=== PATIENT | female | born 1960 | race Caucasian/White ===

== ENCOUNTER 2018-08-11 10:57 | Outpatient (CLI) | payer MEDICAID, SELFPAY ==
[2018-08-11 14:50] LABS: Hemoglobin A1C 10.7 % (4.5-6.2)
== END 2018-08-11 11:17 ==
PROVIDERS: PCP Internal Medicine; Visit Provider Internal Medicine
DX: E11.9 Type 2 diabetes mellitus without complications (principal)
CPT/HCPCS: 36415; 88142; 83036; 87624

== ENCOUNTER 2018-08-11 12:16 | Outpatient (REF) | payer MEDICAID, SELFPAY ==
--- NOTE | 2018-08-11 11:00 | PAPFT_PTH ---
PATIENT: Amy Boyd LOC: [facility] U#:[id number] AGE/SX: 58/F ROOM: RE08/11/[address]: Sharmila Miller MD : 1960 BED: DIS: 08/11/2018 SPEC #: [id number] RECD: 08/11/18 12:54 STATUS: MARIEL REFredy #: [id number] MEGA: 08/11/18 11:[address]: Sharmila Argueta DEPT: [facility] Cytology RECD BY: Alicia Bentley Tissues: 1 - CX/ENDOCX FOR PAP SMEARS Procedures: PAP THIN PREP/UVM Screening HPV DNA PROBE Comments: [id number]
== END 2018-08-11 12:36 ==
LOC: LBN 12:16
PROVIDERS: PCP Internal Medicine; Visit Provider Internal Medicine
DX: Z12.4 Encounter for screening for malignant neoplasm of cervix (principal); Z11.51 Encounter for screening for human papillomavirus (HPV)
CPT/HCPCS: 88142; 87624

== ENCOUNTER 2018-08-19 00:27 | Outpatient (CLI) | payer MEDICAID, SELFPAY ==
--- NOTE | 2018-08-19 11:05 | DI.MAMMO_ITS ---
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 Comparison is made with the prior examinations. No suspicious masses or microcalcifications are seen. There is no definite evidence of malignancy. IMPRESSION: Negative mammogram. Routine screening is recommended. Category 1 , breast density B. SA ASSESSMENT OF FINDINGS: Negative. Category 1. Patient will receive a letter notifying them of these results. BI-RADS category B. There are scattered areas of fibroglandular density.
== END 2018-08-19 00:47 ==
PROVIDERS: PCP Internal Medicine; Visit Provider Internal Medicine
DX: Z12.31 Encounter for screening mammogram for malignant neoplasm of breast (principal); Z01.419 Encounter for gynecological examination (general) (routine) without abnormal findings
CPT/HCPCS: 77063; 77067

== ENCOUNTER 2018-12-29 11:36 | Outpatient (CLI) | payer MEDICAID, SELFPAY ==
[2018-12-29 13:31] LABS: FREE T4 0.91 ng/dL (0.76-1.46)
== END 2018-12-29 11:56 ==
PROVIDERS: PCP Internal Medicine; Visit Provider Internal Medicine
DX: E03.9 Hypothyroidism, unspecified (principal); E11.9 Type 2 diabetes mellitus without complications
CPT/HCPCS: 36415; 83036; 84439; 84443

== ENCOUNTER 2019-08-07 06:40 | Outpatient (CLI) | payer MEDICAID, SELFPAY ==
[2019-08-07 11:15] LABS: Calculated LDL 141 mg/dL; Cholesterol 206 mg/dL (<200); HDL Cholesterol 29 mg/dL (40-60); TSH (W/Ref FT4) 3.26 uIU/mL (0.36-3.74); Triglyceride 181 mg/dL (<150)
[2019-08-07 13:37] LABS: Hemoglobin A1C 8.4 % (4.5-6.2)
== END 2019-08-07 07:00 ==
PROVIDERS: PCP Internal Medicine; Visit Provider Internal Medicine
DX: E78.9 Disorder of lipoprotein metabolism, unspecified (principal); E03.9 Hypothyroidism, unspecified; E11.9 Type 2 diabetes mellitus without complications
CPT/HCPCS: 36415; 80061; 83036; 84443

== ENCOUNTER 2019-09-10 00:09 | Outpatient (CLI) | payer MEDICAID, SELFPAY ==
--- NOTE | 2019-09-10 11:39 | DI.MAMMO_ITS ---
EXAM: MG MAMMO SCREENING CLINICAL HISTORY: screening, Z12.39. TECHNIQUE: Bilateral full field digital CC and MLO mammographic images were obtained with 3D tomosyn thesis and utilizing computer aided detection (CAD). COMPARISON: Available for comparison. FINDINGS: Masses/Architectural Distortion: None seen. Microcalcifications: No suspicious pleomorphic-type are seen. Skin Thickening/Nipple Retraction: None. IMPRESSION: 1. No significant interval change with no specific features of malignancy noted. 2. Unless there is more urgent need, screening mammography is recommended, as per [employer] guidelines. ACR BI-RAD Category- 1 Negative Breast Density - Category B - Scattered areas of fibroglandular density A negative radiographic report should not delay biopsy if a dominant or clinically suspicious mass is present. Up to ten percent of cancers are not identified on mammography. A negative report may reinforce clinical impression. Adenosis and dense breasts may obscure an underlying neoplasm. False positive reports average 6 to 10%. Patient will receive a letter notifying them of these results.
== END 2019-09-10 00:29 ==
PROVIDERS: PCP Internal Medicine; Visit Provider Internal Medicine
DX: Z12.31 Encounter for screening mammogram for malignant neoplasm of breast (principal)
CPT/HCPCS: 77063; 77067

== ENCOUNTER 2020-03-31 19:57 | Outpatient (REF) | payer MEDICAID, SELFPAY ==
[2020-03-31 20:53] LABS: Calculated LDL 143 mg/dL (<100); Cholesterol 231 mg/dL (<200); HDL Cholesterol 33 mg/dL (40-60); Triglyceride 277 mg/dL (<150)
[2020-03-31 21:03] LABS: Hemoglobin A1C 10.6 % (3.8-5.6)
== END 2020-03-31 20:17 ==
LOC: LBN 19:57
PROVIDERS: PCP Nurse Practitioner; Visit Provider Internal Medicine
DX: E78.2 Mixed hyperlipidemia (principal); E11.9 Type 2 diabetes mellitus without complications
CPT/HCPCS: 80061; 83036

== ENCOUNTER 2020-07-21 08:01 | Outpatient (CLI) | payer SELFPAY ==
[2020-07-23 13:19] LABS: SARS-CoV-2 RNA Not Detected (NotDetected); SARS-CoV-2 RNA Source Nasal/Nares
== END 2020-07-21 08:21 ==
PROVIDERS: PCP Nurse Practitioner; Visit Provider Surgery
DX: Z01.818 Encounter for other preprocedural examination (principal); Z11.59 Encounter for screening for other viral diseases
CPT/HCPCS: U0003

== ENCOUNTER 2020-07-25 06:21 | Day surgery (SDC) | payer SELFPAY ==
[2020-07-25 06:30] VITALS: BP 122/53; PULSE 58; RESP 18; TEMP 36.4; O2SAT 99
--- NOTE | 2020-07-25 06:40 | W.COLOREPORT ---
Date of service: 07/25/20 Time of Service: 07:30 Colonoscopy Report Date of procedure: 07/25/20 Pre-op diagnosis general: Hx of polyps Procedure: Colonoscopy with polypectomy Surgeon: Sunita Fry Anesthesia proc note operative: other (General/ ASA 2/Surendra lopez, JAYDEN) Estimated blood loss (mL): 3 Pathology: other (cecal, ascending, descending x4, sigmoid x3 and polyp at 30 cm) Complications: None Disposition: same day Indications: The patient is here for Colonoscopy pre-op. Her last screening was in 2014 and was remarkable for tubular adenoma. She has no family history of colon cancer. She has noted bowel habit changes which she associates with her increase in her Metformin dose, for she has had more frequent diarrhea. -Discussed colonoscopy bowel prep as well as the procedure. Discussed possible complications of the procedure to include bleeding, pain, perforation, missed small lesion/polyp, sore throat, aspiration and adverse reaction to the medications. Questions were answered to patient?s satisfaction. No guarantees were implied or given. Prep: Miralax/Dulcolax Procedure Start Time: 07:24 Procedure End Time: 08:15 Retraction Time: 44 minutes Findings: multiple polyps and mild diverticulosis Procedure Description: After informed consent was obtained the patient was taken to the procedure room and placed in a left decubitous position. Monitors were applied and a time out was done. The patients name, date of , procedure, allergies to medications and metal in their body was reviewed. The patient was then sedated. Once sedated and comfortable a rectal exam was done. External exam was normal. Internal exam revealed a normal sphincter tone and no palpable masses. The scope was then introduced and retro-flexed. No internal hemorrhoids were identified. The scope was then advanced to the cecum without difficulty. The ileocecal vlave and appendiceal orifice were identified. The prep was adequate. The scope was then slowly retracted over 44 minutes back into the rectum. Polyps were removed with cold forceps in the cecum, ascending colon x1, descending colon x4, sigmoid colon x3. Polyp at 30 cm was removed with a hot snare. There was also mild diverticulosis of the sigmoid colon. The scope was removed and the patient was woken up and taken back to Same day surgery in stable condition. The patient tolerated the procedure well and there were no immediate complications. Follow up: The patient should follow up in 3-5 years unless they develop changes in bowel habits or other new gastrointestinal complaints.
--- NOTE | 2020-07-25 06:41 | W.PM.DSUDISC ---
Discharge Plan Disposition Patient Disposition: HOME Condition: Good Discharge Details Reason For Visit: colonoscopy Attending Provider: Sunita Fry Primary Care Provider: Liat Wise Home Meds and New Rx's Prescriptions: Continued atenolol 25 mg tablet 25 mg PO DAILY Qty: 90 RF: 4 levothyroxine 137 mcg tablet 137 mcg PO .COMPLEX Qty: 48 RF: 3 levothyroxine 150 mcg tablet 150 mcg PO .COMPLEX Qty: 48 RF: 3 lisinopril 10 mg tablet 10 mg PO DAILY Qty: 90 RF: 4 glipizide 5 mg tablet 10 mg PO BID Qty: 180 RF: 4 ASPIRIN 81 MG tablet 1 tab PO DAILY RF: 0 nitroglycerin 0.4 MG tablet, sublingual 1 tab Sublingual PRN Qty: 25 RF: 4 diphenhydramine HCl 25 MG tablet 25 mg PO HS RF: 0 fluoxetine 20 mg capsule 20 mg PO DAILY Qty: 90 RF: 3 atorvastatin 80 mg tablet 80 mg PO QPM Qty: 90 RF: 3 metformin 1,000 mg tablet 1,000 mg PO BID Qty: 90 RF: 3 Discharge Instructions Instructions: Colorectal Polyps (DC), Diverticulosis (DC) Additional Instructions: Findings: 10 polyps Follow up: 3-5 years Please call if you develop: fevers >101.5 Nausea or Vomiting Abdominal pain that is not transient DAY SURGERY UNIT POST ENDOSCOPY INSTRUCTIONS 1. Because there will be medication in your system for the next 24 hours, you may feel a little sleepy. Your coordination will be affected. Therefore: a. Do not drive or operate dangerous equipment for 24 hours. b. Do not drink alcohol beverages for 24 hours (not even beer). c. Plan to go home and rest for the day. 2. Generally there are no restrictions on your activity after a day or so has gone by, but you may feel a bit fatigued for a few days. 3 After you arrive home you may have a light meal and return to a normal diet as you can tolerate it without feeling sick to your stomach. 4. After surgery, you may feel pain or discomfort. This should be only transient, but if it persists please contact your doctor. 5. If there are any questions regarding the findings of your procedure, please feel free to contact your doctor. 6. If you are unable to contact your doctor with a problem, contact the hospital at [phone]. 7. Continue all your regular medications unless directed otherwise. I understand the above instructions and have no questions. Signature of Patient or Responsible Adult Escort Date/Time Name of Responsible Adult Escort Signature of Nurse Date/Time Activity:: Activity as Tolerated Diet:: high Fiber diet Discharge Orders Discharge Orders: Discharge Order (Routine); Ordered 07/25/20 Ordered By: Sunita Fry DS: Diagnosis Discharge Diagnosis (1) Colorectal polyps: Status: Acute (2) Diverticulosis: Status: Acute
[2020-07-25] MEDS: Lactated Ringers 1,000 ML 80 ML IV (06:55)
--- NOTE | 2020-07-25 07:33 | BOWEL_PTH ---
PATIENT: Amy Boyd LOC: [facility] U#:[id number] AGE/SX: 60/F ROOM: RE07/25/[address]: Sunita rFy MD : 1960 BED: DIS: 07/25/2020 SPEC #: [id number] RECD: 07/25/20 09:49 STATUS: MARIEL RE #: [id number] MEGA: 07/25/20 07:[address]: Sunita Fry DEPT: Surgical Specimen RECD BY: Philomena Wiley ENTERED: 07/25/20 09:52 SP TYPE: Bowel OTHR DR: Liat Wise, PhD NITROGLYCERIN NEUTRALIZER Tissues: 1 - BIOPSY BOWEL 2 - BIOPSY BOWEL 3 - BIOPSY BOWEL 4 - BIOPSY BOWEL 5 - BIOPSY BOWEL Procedures: GROSS AND MICRO LEVEL 4 Comments: [id number] ([id number] [facility] [place]#)
[2020-07-25] MEDS: metFORMIN 500 MG TAB 1000 MG PO (08:34)
[2020-07-25 08:53] VITALS: BP 123/56; PULSE 56; RESP 18; TEMP 36.2; O2SAT 98
== END 2020-07-25 09:09 | disposition home or self-care (01) ==
PROVIDERS: PCP Nurse Practitioner; Visit Provider Surgery
PROC: 0DJD8ZZ Inspection of Lower Intestinal Tract, Via Natural or Artificial Opening Endoscopic (ICD-10-PCS; CPT 45378; principal; 2020-07-25 07:30)
DX: Z12.11 Encounter for screening for malignant neoplasm of colon (principal); Z86.010 Personal history of colon polyps; K57.30 Diverticulosis of large intestine without perforation or abscess without bleeding; E11.9 Type 2 diabetes mellitus without complications; I25.10 Atherosclerotic heart disease of native coronary artery without angina pectoris
CPT/HCPCS: 45385; 45380; 88305; J2001

== ENCOUNTER 2020-10-27 16:20 | Emergency (ER) | payer MEDICAID, SELFPAY ==
[2020-10-27] VITALS (29 sets, daily range): BP systolic 96–134; BP diastolic 48–108; PULSE 54–66; RESP 11–23; TEMP 36.3; O2SAT 97–100
--- NOTE | 2020-10-27 16:45 | RT.EKG_ITS ---
APPROVED REPORT Exam: Resting ECG Patient Location: E HR:57 bpm ECG Measurements Heart Rate 57 AXIS WI 204 P 47 QRSd 85 QRS 61 QT 438 T 59 QTc 426 Conclusion Sinus bradycardia. Borderline prolonged WI interval...WI >202
--- NOTE | 2020-10-27 17:24 | ED.GENADUL_ITS ---
Discharge Plan Disposition Patient Disposition: HOME Condition: Good Discharge Details Clinical Impression: Dizziness, Elevated lipase, Hypomagnesemia Primary Care Provider: Liat Wise ED Provider: Alicia Witt Home Meds and New Rx's Prescriptions: New magnesium gluconate 30 mg (550 mg) tablet 30 mg PO DAILY Qty: 7 RF: 0 meclizine 25 mg tablet 25 mg PO DAILY Qty: 7 RF: 0 No Action levothyroxine 137 mcg tablet 137 mcg PO .COMPLEX Qty: 48 RF: 3 levothyroxine 150 mcg tablet 150 mcg PO .COMPLEX Qty: 48 RF: 3 lisinopril 10 mg tablet 10 mg PO DAILY Qty: 90 RF: 4 ASPIRIN 81 MG tablet 1 tab PO DAILY RF: 0 nitroglycerin 0.4 MG tablet, sublingual 1 tab Sublingual PRN Qty: 25 RF: 4 diphenhydramine HCl 25 MG tablet 25 mg PO HS RF: 0 fluoxetine 20 mg capsule 20 mg PO DAILY Qty: 90 RF: 3 atorvastatin 80 mg tablet 80 mg PO QPM Qty: 90 RF: 3 metformin 1,000 mg tablet 1,000 mg PO BID Qty: 90 RF: 3 atenolol 25 mg tablet 25 mg PO DAILY Qty: 90 RF: 4 glipizide 10 mg tablet 10 mg PO BID Qty: 180 RF: 4 Discharge Instructions Instructions: Hypomagnesemia (ED), Dizziness (ED) Additional Instructions: Have a repeat lipase tests drawn today or tomorrow Follow-up with your doctor to discuss whether or not your medications may be causing elevation in her lipase Try to have a clear liquid diet Meclizine may be attempted should you have recurrence of your dizziness If your symptoms are not alleviated with the meclizine, you should be reevaluated in the emergency room Please return earlier should you have new or worsening complaints Take magnesium as instructed Medical Decision Making Lipase 700, patient was able to tolerate p.o., clear liquid recommended Order for lipase recheck in 24 to 48 hours recommended Instructed to discuss with her doctor regarding whether or not diabetes medications may be causing her symptoms Patient is well in appearance, she is completely asymptomatic throughout the entirety of her exam, she has 2 - troponins and EKG She was observed on telemetry without any abnormal findings She is ambulatory around room, she is not orthostatic To request discharge home at this time Her magnesium was noted to be low, 1.5, this was supplemented Given the threshold to return should she have new or worsening complaints She is able to tolerate p.o. at time of discharge Suspicion for gastroenteritis with her symptoms are completely resolved and more in close proximity to feeling dizzy which she describes with peripheral dizziness Low risk for carotid artery or vertebral artery dissection, no mechanism with her red flags She is ambulatory with steady gait Her magnesium was supplemented and unlikely to cause her symptoms 24-hour recheck recommended Differential Diagnosis Differential Diagnosis: Hypomagnesemia, vertigo, vertebral or carotid artery dissection, gastroente Medical Records Medical records reviewed: Yes I reviewed the patient's medical records. HPI This 60-year-old female presents via the report of acute onset of dizziness which she described bending. She states she had several episodes today. She states she is had this in the past but has not been quite no persistent. She denies any head injury. She denies any chest pain or shortness of breath. She denies dizziness or weakness. She has any new medication she did vomit approximately 3 times prior to arrival. She believes this is secondary to the dizziness. She also had an episode of diarrhea with vomiting. She denies any abdominal pain. She denies any current dizziness. She denies headache or vision change. She denies speech, strength, or sensation change. General Date/Time Provider Initiated Documentation: 10/27/20 16:22 . Related Data Home Medications Medication Instructions Recorded Confirmed Aspirin 1 tab PO DAILY tab-cap 12/09/12 10/27/20 nitroglycerin 1 tab SUBLINGUAL PRN #25 12/09/12 10/27/20 diphenhydramine HCl 25 mg PO HS 12/16/17 10/27/20 fluoxetine 20 mg capsule 20 mg PO DAILY #90 tab-cap 01/07/20 10/27/20 levothyroxine 137 mcg tablet 137 mcg PO .COMPLEX #48 tab 02/11/20 10/27/20 levothyroxine 150 mcg tablet 150 mcg PO .COMPLEX #48 tab 02/11/20 10/27/20 lisinopril 10 mg tablet 10 mg PO DAILY #90 tab 02/11/20 10/27/20 atorvastatin 80 mg tablet 80 mg PO QPM #90 tab 04/05/20 10/27/20 metformin 1,000 mg tablet 1,000 mg PO BID #90 tab 05/20/20 10/27/20 atenolol 25 mg tablet 25 mg PO DAILY #90 tab 09/23/20 10/27/20 glipizide 10 mg tablet 10 mg PO BID #180 tab 10/03/20 10/27/20 magnesium gluconate 30 mg PO DAILY #7 tab 10/27/20 meclizine 25 mg PO DAILY #7 tab 10/27/20 Previous Rx's Medication Instructions Recorded fluoxetine 20 mg capsule 20 mg PO DAILY #90 tab-cap 01/07/20 levothyroxine 137 mcg tablet 137 mcg PO .COMPLEX #48 tab 02/11/20 levothyroxine 150 mcg tablet 150 mcg PO .COMPLEX #48 tab 02/11/20 lisinopril 10 mg tablet 10 mg PO DAILY #90 tab 02/11/20 atorvastatin 80 mg tablet 80 mg PO QPM #90 tab 04/05/20 metformin 1,000 mg tablet 1,000 mg PO BID #90 tab 05/20/20 atenolol 25 mg tablet 25 mg PO DAILY #90 tab 09/23/20 glipizide 10 mg tablet 10 mg PO BID #180 tab 10/03/20 magnesium gluconate 30 mg PO DAILY #7 tab 10/27/20 meclizine 25 mg PO DAILY #7 tab 10/27/20 Allergies Allergy/AdvReac Type Severity Reaction Status Date / Time Sulfa (Sulfonamide Allergy Intermediate Skin Rash Verified 10/27/20 17:00 Antibiotics) ezetimibe Allergy Unknown Verified 10/27/20 17:00 General Stated Complaint: Nausea/Vomit/Diar WILBER: 3 Review of Systems Narrative: Review of systems negative x7 aside from where indicated in HPI, spec ifically now headache, strength or sensation changes, weakness, vision change, chest pain, shortness of breath PFSH Medical History Arteritis (12/14/06) Elev transaminase/LDH (10/16/07) elevated ferritin History of tobacco use Surgical History Biopsy of breast right; ductal hyper-- History of bilateral ligation of fallopian tubes Stent placement rca STRESS TEST (09/24/13) DR. CLAROS Family History Mother , age 75 Diabetes Essential hypertension Depression Hyperlipidemia Breast cancer Sister No problems noted. Brother Diabetes Essential hypertension Maternal Grandfather Diabetes Essential hypertension Heart disease Paternal Grandfather No problems noted. Maternal Grandmother No problems noted. Paternal Grandmother No problems noted. Brother No problems noted. Brother No problems noted. Daughter Depression Daughter Depression Social History Smoking/Tobacco Use Status: Former Tobacco Use Quit Date: 09/16/02 Smoking risk assessment performed?: Yes Alcohol Intake: former Drug use: Current Sobriety Substance use type: does not use Caregiver/Support person: No Household members: spouse and family Do you need help understanding health information?: Never current occupation: [employer] ST[employer]ARD[employer] Pets and animals: Yes Pets and animals: dog(s) Sexually active: No Do you think of yourself as: straight/heterosexual Current gender identity: female What is your relationship status?: How often do you talk on the phone with friends or family?: never How often do you get together with friends or relatives?: once per week How often do you attend mormon or christianity services?: decline to answer Do you belong to any clubs or organized social groups?: no Panel score (0-1 are the most socially isolated patients): 1 What type of physical activity do you participate in: decline to answer Duration: decline to answer Frequency: decline to answer Fifi/Anabaptist: None Special fifi needs: No Seatbelt use: always Drive intox or ride w/intox passenger coach driver: No Do you feel safe at home: Yes Do you feel safe in your relationship?: Yes Exam Const General: cooperative, comfortable and no acute distress Orientation: alert HENMT Face and sinus: normal facial exam Throat: uvula midline Eyes Pupils: PERRL EOM: EOM intact bilaterally Neck Other: No carotid bruit Resp Effort & Inspection: normal respiratory effort Cardio Rate: regular rate Rhythm: regular rhythm Pulses: normal peripheral pulses GI Inspection: normal to inspection Other: No tenderness abdominal exam, specifically no right upper quadrant tenderness or epigastric tenderness, no abdominal bruit or pulsatile mass Skin General skin exam: no rashes or lesions noted Neuro General: patient alert, patient awake, patient oriented x3 and CN's II-XI intact bilaterally Cranial Nerves: CN's II-XI intact bilaterally and PERRL Cognition: normal cognition Sensory Exam: no sensory deficits noted Coordination: [id number] test normal Course Vital Signs Vital signs: Vital Signs Temperature 36.3 C L 10/27/20 16:54 Pulse 56 L 10/27/20 16:54 Respiratory Rate 16 10/27/20 16:54 Blood Pressure 103/62 10/27/20 16:54 Pulse Oximetry 100 10/27/20 16:54 Temperature 36.3 C L 10/27/20 16:54 Temperature Source Skin 10/27/20 16:54 Pulse 56 L 10/27/20 16:54 Respiratory Rate 16 10/27/20 16:54 Respiratory Effort Non-Labored 10/27/20 16:54 Blood Pressure 103/62 10/27/20 16:54 Blood Pressure Position Supine 10/27/20 16:54 Pulse Oximetry 100 10/27/20 16:54 Oxygen Delivery Method Room Air 10/27/20 16:54 Oxygen Flow Rate 0 10/27/20 16:54 Pain Level 0 10/27/20 16:54
[2020-10-27] MEDS: Normal Saline 1,000 ML 1000 ML IV ×2 (17:25→19:29)
[2020-10-27 17:31] LABS: Abs Immature Grans 0.13 10^3/uL (0.0-0.06); Absolute Basophil Count 0.06 10^3/uL (0.0-0.2); Absolute Eosinophil Count 0.07 10^3/uL (0.0-0.7); Absolute Lymphocyte Count 1.36 10^3/uL (1.2-3.4); Absolute Monocyte Count 0.59 10^3/uL (0.1-0.8); Absolute Neutrophil Count 9.42 10^3/uL (1.2-6.7); Basophils % 0.5; Eosinophils % 0.6; HGB 13.7 g/dL (11.2-15.7); Immature Grans % 1.1; Lymphocytes % 11.7; MCH 30.8 pg (27.0-33.0); MCHC 33.4 % (32.0-36.0); MCV 92.1 fL (80-95); MPV 9.5 fL (8.0-11.0); Monocytes % 5.1; Nucleated RBC 0 %; Platelet Count 337 10^3/uL (130-400); RBC 4.45 10^6/uL (3.93-5.22); RDW 11.9 % (11.7-14.6); RDW-SD 39.6 fL; WBC 11.63 10^3/uL (4.4-10.8)
[2020-10-27 17:45] LABS: ALT 51 U/L (14-59); AST 28 U/L (15-37); Albumin 3.6 g/dL (3.4-5.0); Alkaline Phosphatase 59 U/L (46-116); Anion Gap 8.8 mmol/L (3-11); BUN 21 mg/dL (7-18); Bilirubin, Total 0.3 mg/dL (0.2-1.0); CO2 29.2 mmol/L (21.0-32.0); CREATININE 0.9 mg/dL (0.55-1.02); Calcium 9.4 mg/dL (8.5-10.1); Chloride 99 mmol/L (98-107); Glucose 274 mg/dL (74-106); Lipase 772 U/L (73-393); Magnesium 1.5 mg/dL (1.8-2.4); Potassium 4.7 mmol/L (3.5-5.1); Sodium 137 mmol/L (136-145)
[2020-10-27 17:48] LABS: Troponin I < 0.05 ng/mL (<0.06)
[2020-10-27 18:02] LABS: C-Reactive Protein 0.05 mg/dL (0.0-0.3)
--- NOTE | 2020-10-27 18:45 | RT.EKG_ITS ---
APPROVED REPORT Exam: Resting ECG Patient Location: E HR:61 bpm ECG Measurements Heart Rate 61 AXIS MI 176 P 64 QRSd 86 QRS 45 QT 420 T 53 QTc 422 Conclusion Sinus rhythm...normal P axis, V-rate 60- 99 Normal [place] There are no significant changes compared to prior EKG performed on 10/27/2020 at 17:08.
[2020-10-27 20:47] LABS: Troponin I < 0.05 ng/mL (<0.06)
== END 2020-10-27 21:14 | disposition home or self-care (01) ==
LOC: ER 21:30
PROVIDERS: Emergency Provider Physician Assistant; PCP Nurse Practitioner
DX: E83.42 Hypomagnesemia (principal); R74.8 Abnormal levels of other serum enzymes; R42 Dizziness and giddiness
CPT/HCPCS: 36415; 80053; 83690; 93005; 96360; 96361; 99285; 83735; 84484; 85025; 86140; 93010; 99284

== ENCOUNTER 2020-10-31 01:55 | Outpatient (CLI) | payer MEDICAID, SELFPAY ==
[2020-10-31 11:57] LABS: CREATININE 0.8 mg/dL (0.55-1.02); Calculated LDL 108 mg/dL (<100); Cholesterol 177 mg/dL (<200); HDL Cholesterol 31 mg/dL (40-60); Magnesium 1.5 mg/dL (1.8-2.4); Potassium 4.2 mmol/L (3.5-5.1); TSH 1.08 uIU/mL (0.36-3.74); Triglyceride 192 mg/dL (<150)
[2020-10-31 12:28] LABS: Hemoglobin A1C 10.1 % (<5.7)
[2020-10-31 12:30] LABS: Lipase 2283 U/L (73-393)
[2020-11-01 15:47] LABS: ALT 66 U/L (14-59); AST 38 U/L (15-37); Albumin 3.8 g/dL (3.4-5.0); Alkaline Phosphatase 62 U/L (46-116); Anion Gap 12.7 mmol/L (3-11); BUN 13 mg/dL (7-18); Bilirubin, Total 0.4 mg/dL (0.2-1.0); CO2 25.3 mmol/L (21.0-32.0); CREATININE 0.8 mg/dL (0.55-1.02); Calcium 9.3 mg/dL (8.5-10.1); Chloride 100 mmol/L (98-107); Glucose 358 mg/dL (74-106); Potassium 4.3 mmol/L (3.5-5.1); Sodium 138 mmol/L (136-145); Total Protein 7.8 g/dL (6.4-8.2)
== END 2020-10-31 01:56 | disposition home or self-care (01) ==
LOC: LBO 01:56
PROVIDERS: PCP Nurse Practitioner; Visit Provider Nurse Practitioner
DX: I10 Essential (primary) hypertension (principal); E78.5 Hyperlipidemia, unspecified; E11.9 Type 2 diabetes mellitus without complications; E03.9 Hypothyroidism, unspecified; E83.42 Hypomagnesemia; R74.8 Abnormal levels of other serum enzymes
CPT/HCPCS: 36415; 80053; 80061; 83690; 82565; 83036; 83735; 84132; 84443

== ENCOUNTER 2020-11-09 01:10 | Outpatient (CLI) | payer MEDICAID, SELFPAY ==
--- NOTE | 2020-11-09 13:15 | DI.CT_ITS ---
EXAM: CT ABDOMEN PELVIS W CLINICAL HISTORY: elevated lipase/ amylase,R74.8,ABNL LABS. TECHNIQUE: Imaging Protocol: Axial computed tomography images with coronal and sagittal reformatted images were created and reviewed CONTRAST MATERIAL: Intravenous: Omnipaque 100cc Oral: None COMPARISON: No exams were available for comparison FINDINGS: VISUALIZED LUNG BASES: No nodules nor pleural effusions evident. ABDOMEN: There is no ascites. LIVER: Liver is hypodense implying steatosis. There are no discrete focal hepatic lesions identified . GALLBLADDER/BILIARY: No obvious gallbladder pathology. CBD is not dilated. PANCREAS: No evidence of pancreatic mass nor dilatation of the pancreatic duct. SPLEEN: Spleen is not enlarged. No obvious intrasplenic lesions. Splenic and portal veins are paten t. ADRENALS: There are no significant adrenal masses. KIDNEYS:No cysts evident. No solid renal masses. No calculi nor hydronephrosis.. ABDOMINAL AORTA: Abdominal aorta is not enlarged. LYMPH NODES:There is no retroperitineal nor paraaortic adenopathy. ABDOMINAL WALL/GI: No evidence of significant anterior abdominal wall hernia. No bowel obstruction. PELVIS: GI: No evidence of appendicitis.Mild thickening of the wall of the sigmoid is noted. No obvious acut e diverticulitis. LYMPH NODES: There is no intrapelvic nor inguinal adenopathy. REPRODUCTIVE: Uterus is slightly deviated to the right. No obvious ovarian masses. URINARY BLADDER: Collapsed. OSSEOUS: No significant osseous lesions. IMPRESSION: 1. There is some mild thickening of the sigmoid. No evidence of obvious acute diverticulitis. No ev idence of appendicitis. No bowel obstruction. No free air. No abscess. 2. Hepatic steatosis. Correlation appropriate hepatic blood work is recommended. There are no discr ete ominous focal hepatic lesions evident. 3. There is no ascites and there is no lymph adenopathy in the abdomen and pelvis. Sign rib RADIATION DOSE DELIVERED: 1,154.26mGy.cm Total DLP DATA REPOSITORY: All CT scans at this facility are submitted to the National Radiology Data Registry (NRDR) Dose Index Registry (DIR) with the [employer] (ACR). RADIATION OPTIMIZATION: All CT scans at this facility use at least one of these dose optimization te chniques: automated exposure control; mA and/or kV adjustment per patient size (includes targeted exa ms where dose is matched to clinical indication); or iterative reconstruction.
[2020-11-09] MEDS: Normal Saline - Diluent 50 ML VIAL IV (13:24)
[2020-11-09] MEDS: Omnipaque 350 MG/ML 100 ML BTL IJ (13:24)
[2020-11-09] MEDS: Breeza Beverage 473 ML BTL PO ×2 (13:25→13:26)
[2020-11-09] MEDS: Omnipaque 350 MG/ML 50 ML BTL PO (13:25)
== END 2020-11-09 01:11 ==
LOC: DI 01:10
PROVIDERS: PCP Nurse Practitioner; Visit Provider Nurse Practitioner
DX: K76.0 Fatty (change of) liver, not elsewhere classified (principal); R74.8 Abnormal levels of other serum enzymes
CPT/HCPCS: 74177; J3490; Q9967

== ENCOUNTER 2021-01-03 01:14 | Outpatient (CLI) | payer MEDICAID, SELFPAY ==
--- NOTE | 2021-01-03 11:45 | DI.MAMMO_ITS ---
EXAM: MAMMO SCREENING CLINICAL HISTORY: screening,Z12.39 TECHNIQUE: Mammograms were interpreted according to the usual protocol including computer analysis w [employer] CAD system, tomosynthesis and C-view imaging. COMPARISON: FINDINGS: The breasts are of moderate density with fairly symmetrical distribution of fibroglandular tissue. N o dominant mass or clumped microcalcification is identified in either breast. Prior right breast bio psy is noted. Comparison with previous examinations including August 2019 shows no gross interval change in appea cynthia comparison with the prior studies. IMPRESSION: No specific evidence of malignancy at this time. Routine screening examinations are suggested at yea rly intervals due to the family history of breast carcinoma. BI-RADS Category 1 - Negative Breast Density - Category B - Scattered areas of fibroglandular density
== END 2021-01-03 01:34 ==
PROVIDERS: PCP Nurse Practitioner; Visit Provider Nurse Practitioner
DX: Z12.31 Encounter for screening mammogram for malignant neoplasm of breast (principal); Z80.3 Family history of malignant neoplasm of breast
CPT/HCPCS: 77063; 77067

== ENCOUNTER 2022-03-15 02:19 | Outpatient (CLI) | payer MEDICAID, SELFPAY ==
[2022-03-15 10:12] LABS: Hemoglobin A1C 10.4 % (<5.7)
[2022-03-15 10:14] LABS: Anion Gap 6.6 mmol/L (3-11); BUN 18 mg/dL (7-18); CO2 27.4 mmol/L (21.0-32.0); CREATININE 0.8 mg/dL (0.55-1.02); Calculated LDL 139 mg/dL (<100); Chloride 99 mmol/L (98-107); Cholesterol 218 mg/dL (<200); Glucose 292 mg/dL (74-106); HDL Cholesterol 36 mg/dL (40-60); Potassium 4.6 mmol/L (3.5-5.1); Sodium 133 mmol/L (136-145); TSH (W/Ref FT4) 0.23 uIU/mL (0.36-3.74); Triglyceride 218 mg/dL (<150)
[2022-03-15 10:31] LABS: FREE T4 1.34 ng/dL (0.76-1.46)
== END 2022-03-15 02:20 | disposition home or self-care (01) ==
LOC: LBO 02:19
PROVIDERS: PCP Nurse Practitioner; Visit Provider Nurse Practitioner
DX: I10 Essential (primary) hypertension (principal); E78.5 Hyperlipidemia, unspecified; E03.9 Hypothyroidism, unspecified; E11.9 Type 2 diabetes mellitus without complications
CPT/HCPCS: 36415; 80048; 80061; 83036; 84439; 84443

== ENCOUNTER → 2022-04-11 01:32 | Outpatient (CLI) | payer MEDICAID, SELFPAY ==
--- NOTE | 2022-04-11 08:15 | DI.MAMMO_ITS ---
Exam(s) MAMMO SCREENING EXAM: MAMMO SCREENING CLINICAL HISTORY: screening, Z12.39 TECHNIQUE: Bilateral full field digital CC and MLO mammographic images were obtained with 3D tomosyn thesis and utilizing computer aided detection (CAD). COMPARISON: Available for comparison. FINDINGS: Masses/Architectural Distortion: None seen. Microcalcifications: No suspicious pleomorphic-type are seen. Skin Thickening/Nipple Retraction: None. IMPRESSION: 1. No significant interval change with no specific features of malignancy noted. 2. Unless there is more urgent need, screening mammography is recommended, as per [employer] guidelines. BI-RADS Category 1 - Negative Breast Density - Category B - Scattered areas of fibroglandular density Breast density category C or D implies that the patient has dense breast tissue. Dense breast tissue is very common and is not abnormal but dense breast tissue can make it harder to find cancer on a ma mmogram. Also, dense breast tissue may increase their breast cancer risk. This information about the result of the mammogram report was provided to the patient to raise their awareness. Use this report when you speak with the patient about their risks for breast cancer, which includes their family hist ory. At that time, you may recommend for more screening tests (Ultrasound or MRI) as they might be us eful based on their risk. A negative radiographic report should not delay biopsy if a dominant or clinically suspicious mass is present. Up to ten percent of cancers are not identified on mammography. A negative report may reinforce clinical impression. Adenosis and dense breasts may obscure an underlying neoplasm. False positive reports average 6 to 10%. Patient will receive a letter notifying them of these results.
== END ==
PROVIDERS: PCP Nurse Practitioner; Visit Provider Nurse Practitioner
DX: Z12.31 Encounter for screening mammogram for malignant neoplasm of breast (principal)
CPT/HCPCS: 77063; 77067

== ENCOUNTER 2022-06-06 13:11 | Outpatient (REF) | payer MEDICAID, SELFPAY ==
[2022-06-07 19:36] LABS: Albumin ug/mg Crea 91 (<30); Albumin, Ur 5.7 mg/dL (See Note); Creatinine, Ur 62.9 mg/dL (See Note)
== END 2022-06-06 13:12 | disposition home or self-care (01) ==
LOC: LBN 13:11
PROVIDERS: PCP Nurse Practitioner; Visit Provider Family Medicine
DX: E11.9 Type 2 diabetes mellitus without complications (principal)
CPT/HCPCS: 82043; 82570

== ENCOUNTER 2023-03-21 07:43 | Day surgery (SDC) | payer SELFPAY ==
--- NOTE | 2023-03-20 19:05 | W.PM.DSUDISC ---
Date of service: 03/21/23 Time of Service: 09:16 Discharge Plan Disposition Patient Disposition: Home Condition: Good Discharge Details Reason For Visit: Screening colonoscopy Attending Provider: Kendell Humphrey Primary Care Provider: Hailey Card Home Meds and New Rx's Prescriptions: Continued glipizide 10 mg tablet 10 mg PO BID Qty: 180 4RF atorvastatin 80 mg tablet 80 mg PO QPM Qty: 90 4RF levothyroxine 137 mcg tablet 137 mcg PO .COMPLEX Qty: 48 3RF Rx Instructions: saturday, saturday, saturday 137 mcg PO ; levothyroxine 150 mcg tablet 150 mcg PO .COMPLEX Qty: 48 3RF Rx Instructions: 4 days per week Saturday, Saturday, and Saturday 150 mcg PO ; fluoxetine 20 mg capsule 20 mg PO DAILY Qty: 90 4RF atenolol 25 mg tablet 25 mg PO DAILY Qty: 90 4RF cholecalciferol (vitamin D3) 50 mcg (2,000 unit) capsule 50 mcg PO DAILY B-complex with vitamin C Capsule 1 cap PO DAILY ASPIRIN 81 MG tablet 1 tab PO DAILY nitroglycerin 0.4 MG tablet, sublingual 1 tab Sublingual PRN Qty: 25 diphenhydramine HCl 25 MG tablet 25 mg PO HS lisinopril 10 mg tablet 10 mg PO DAILY Qty: 90 0RF metformin 500 mg tablet extended release 24 hr 1,000 mg PO BID Qty: 180 3RF Discharge Instructions Additional Instructions: Amy, I am sorry to tell you that we were not able to complete your colonoscopy today. Like we talked about, retained stool in the large intestine made it impossible to evaluate the lining appropriately. I was able to find 1 polyp, quite low. This was very small. And I did remove it. I have sent a message to my office asking them to reschedule you, and we will arrange for an extended prep of your large intestine. Hopefully, this will be a little more tolerable, and allow for better visualization during your next colonoscopy. 1. If tolerated, consume a soft, low fiber diet for 1-2 days. 2[address] Do not drive, drink alcohol, operate machinery, make critical decisions, or do activities that require coordination or balance for 24 hours. 3. Because air was put into your colon during the procedure, expelling air from your rectum (passing gas or farting) is normal. 4. You may not have a bowel movement for 1-3 days because of the colonoscopy prep. This is normal. 5. Go directly to the emergency room if you notice any of the following: Develop chills (warm to touch), or if you have a thermometer and your temperature is above 101 Difficulty breathing or difficultly swallowing Persistent vomiting Severe abdominal pain, other than gas cramps Severe chest pain Black, tarry stools Any bleeding ? exceeding one tablespoon 6. Call your physician if the site where your intravenous was started becomes red, swollen, painful, and warm to touch. 7. Your physician has reviewed your pre-procedure medications. Please continue to take those medications as previously ordered. You will be given specific information/education regarding any changes to your medications before leaving. Activity:: Activity as Tolerated Diet:: As Tolerated Discharge Orders Discharge Orders: Discharge Order (Routine); Ordered 03/20/23 Ordered By: Kendell Humphrey DS: Diagnosis Discharge Diagnosis (1) Screen for colon cancer: Status: Acute Asessment and Plan: Incomplete colonoscopy; we will plan to reschedule with an extended prep
--- NOTE | 2023-03-20 19:07 | COLE_ITS ---
Date of service: 03/21/23 Time of Service: 09:18 Colonoscopy Report Date of procedure: 03/21/23 Pre-op diagnosis general: Screening colonoscopy Post-op diagnosis procedure note: other (Rectal polyp; incomplete colonoscopy) Procedure: Colonoscopy Surgeon: Kendell Humphrey Anesthesia Type: General:No Airway Estimated blood loss (mL): 5 Pathology: other (Rectal polyp) Complications: None Disposition: same day Indications: Amy is a 63 year old woman who needs a screening colonoscopy Prep: Miralax/Dulcolax Findings: Rectal polyp, retained stool Procedure Description: We began by assisting Amy into the left lateral decubitus position. Anesthesia was then initiated. Once she was comfortable, I performed an external anorectal exam. This was normal. Digital rectal exam was also normal. I then inserted the colonoscope. Immediately within the rectal vault was retained solid stool. Some of this was evacuated. I did find a 0.25 cm sessile rectal polyp, which I removed with cold forceps. I then advanced the colonoscope past the rectal vault into the sigmoid colon. There was retained s olid stool here as well. Despite several efforts to irrigate the lumen clean, and advanced the colonoscope, it was clear that the quality of her preparation was inadequate, and would not allow for safe colonoscopy. Therefore, I removed the colonoscope, we awakened from anesthesia, we transferred her to the recovery unit.
[2023-03-21 07:58] VITALS: BP 133/56; PULSE 74; RESP 16; TEMP 36.5; O2SAT 97
[2023-03-21] MEDS: Lactated Ringers 1,000 ML 80 ML IV (08:11)
--- NOTE | 2023-03-21 08:35 | ANES.PREOP_ITS ---
General Info Date of Service Date Performed: 03/21/23 Height: 5 ft 1 in Weight: 90.7 kg Body Mass Index (BMI): 37.8 Surgical Procedure: Operation Date: 03/21/23 09:05 Proposed Procedure Side Surgeon annalee Humphrey MD Meds Allergies and Home Medications Allergies Allergy/AdvReac Type Severity Reaction Status Date / Time Sulfa (Sulfonamide Allergy Intermediate Skin Rash Verified 03/21/23 07:55 Antibiotics) ezetimibe Allergy Unknown Verified 03/21/23 07:55 Home Medication Medication Instructions Recorded Aspirin 1 tab PO DAILY 12/09/12 nitroglycerin 0.4 mg sublingual 1 tab sublingual PRN ##25 12/09/12 tablet diphenhydramine HCl 25 mg tablet 25 mg PO HS 12/16/17 B-complex with vitamin C 1 cap PO DAILY 12/01/20 cholecalciferol (vitamin D3) 50 50 mcg PO DAILY 12/01/20 mcg (2,000 unit) capsule lisinopril 10 mg tablet 10 mg PO DAILY #90 tabs 01/25/23 atenolol 25 mg tablet 25 mg PO DAILY #90 tabs 01/31/23 atorvastatin 80 mg tablet 80 mg PO QPM #90 tabs 01/31/23 fluoxetine 20 mg capsule 20 mg PO DAILY #90 tab-caps 01/31/23 glipizide 10 mg tablet 10 mg PO BID #180 tabs 01/31/23 levothyroxine 137 mcg tablet 137 mcg PO .COMPLEX #48 tabs 01/31/23 levothyroxine 150 mcg tablet 150 mcg PO .COMPLEX #48 tabs 01/31/23 metformin 500 mg tablet,extended 1,000 mg PO BID #180 tabs 02/27/23 release 24 hr Current Visit Medications: Current Medications Generic Name Dose Route Start Last Admin Trade Name Freq PRN Reason Stop Dose Admin Hyoscyamine Sulfate 0.125 mg 03/20/23 19:08 Hyoscyamine 0.125 Mg Sl/Oral/Chew SL 04/19/23 19:07 DIRECTED PRN Ringer's Solution 1,000 mls @ 80 mls/hr 03/21/23 06:00 03/21/23 08:11 IV 03/21/23 23:59 80 mls/hr INFUSION SCOTT Administration IV Miscellaneous Supplies 1 each 03/21/23 06:00 Iv Access IV 03/21/23 23:59 DIRECTED SCOTT Ondansetron HCl 4 mg 03/20/23 19:08 Ondansetron 4 Mg/2 Ml Vial IVP 04/19/23 19:07 Q4H PRN PRN Nausea / Vomiting Sodium Chloride 0 ml 03/21/23 06:00 Normal Saline Flush 10 Ml Syr IV 03/21/23 23:59 PRN PRN Sodium Chloride 0 ml 03/21/23 06:00 Normal Saline 10 Ml Vial IJ 03/21/23 23:59 DIRECTED PRN Sterile Water 0 ml 03/21/23 06:00 Water,Injection,Sterile 10 Ml Vial IJ 03/21/23 23:59 DIRECTED PRN PFSH Active Problems Active Problems: Problem Status Onset Code Screen for colon cancer Z12.11 Atherosclerosis of [place] coronary artery 08/15/02 I25.10 Depressive disorder F32.9 Diabetes mellitus 02/04/13 E11.9 Essential hypertension 07/24/13 I10 Hyperlipidemia 02/04/13 E78.5 Hypothyroidism E03.9 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 does not f/u with cardiology anymore as she stated she was discharged from their care. Surgical History Surgical History Biopsy of breast right; ductal hyper-- History of bilateral ligation of fallopian tubes History of colonoscopy with polypectomy (~07/25/20) Stent placement rca-2002 STRESS TEST (09/24/13) DR. CLAROS Tobacco Smoking/Tobacco Use Status: Former Tobacco Use Passive smoking exposure: Yes Second hand exposure: Yes Alcohol Alcohol Intake: former Substance Use Substance use: Current Sobriety Substance use type: does not use Vital Signs and Lab Results Vital Signs Most Recent Vital Signs in EMR: Most Recent Vital Signs Temp Pulse Resp BP Pulse Ox 36.5 C 74 16 133/56 L 97 03/21/23 07:58 03/21/23 07:58 03/21/23 07:58 03/21/23 07:58 03/21/23 07:58 Lab Results Blood Type / Crossmatch: No Data to Display Complete Blood Count: No Data to Display Complete Metabolic Panel: No Data to Display Liver Function Panel: No Data to Display Coagulation Panel: No Data to Display Cardiac Panel: No Data to Display Arterial Blood Gas: No Data to Display Venous Blood Gas: No Data to Display Pancreas Panel: No Data to Display Thyroid Panel: No Data to Display Infectious Disease: No Data to Display Blood Cultures: No Data to Display Toxicology Panel: No Data to Display Imaging and Studies Imaging and Studies Study information below may be from another EMR and interpreted by another provider. Please see original notes in EMR for more complete details. EKG Summary: DATE/TIME OF SERVICE: 10/27/202050 : 1960PERFORMING LOCATION: ER APPROVED REPORT Exam: Resting ECG Patient Location: E HR:61 bpm ECG Measurements Heart Rate 61 AXIS WI 176 P 64 QRSd 86 QRS 45 QT 420 T53 QTc 422 Conclusion Sinus rhythm...normal P axis, V-rate 60- 99 Normal [place] There are no significant changes compared to prior EKG performed on 10/27/2020 at 17:08. Anesthesia Assessment and Plan Anesthesia History Personal History: No History of Anesthesia Complications Family History: No Family History of Anesthesia Complications Exercise Tolerance Exercise Tolerance: Metabolic Equivalents>4 Pertinent Negatives Pertinent Negatives: No Symptoms of GERD and No Major Pulmonary Symptoms or Complaints Cardiac & Pulmonary Exam Cardiac Exam: Normal S1/S2 Heart Sounds Pulmonary Exam: Clear Bilateral Breath Sounds Implantable Cardiac Device Does patient have a Pacemaker or an ICD?: No Airway Exam Known Difficult Airway: No Mallampati Class: 2 Mouth Opening: Normal (> 3cm) Thyromental Distance: Less than 3 cm Neck Range of Motion: Full ROM Neck Circumference: Normal Teeth Condition: Normal Dentition ASA Classification ASA Score: ASA 3 Emergency Case?: No NPO Status NPO Status: NPO Clears >2 hours, Solids >8 hours Anesthesia Plan Resuscitation Status: Full Code Anesthesia Technique: General Anesthesia Airway Planned: Natural Airway Monitors Used: Standard Monitors
[2023-03-21 08:39] VITALS: BMI 37.8
--- NOTE | 2023-03-21 08:56 | BOWEL_PTH ---
PATIENT: Amy Boyd LOC: [facility] U#:[id number] AGE/SX: 63/F ROOM: RE03/21/[address]: Kendell Humphrey MD : 1960 BED: DIS: 03/21/2023 SPEC #: [id number] RECD: 03/21/23 12:52 STATUS: [facility] #: [id number] MEGA: 03/21/23 08:[address]: Kendell Humphrey DEPT: Surgical Specimen RECD BY: Alicia Bentley ENTERED: 03/21/23 12:53 SP TYPE: Bowel OTHR DR: Hailey Card, RADHA Tissues: 1 - BIOPSY BOWEL Procedures: GROSS AND MICRO LEVEL 4 Comments: [id number]
[2023-03-21 09:05] VITALS: BP 110/60; PULSE 68; RESP 16; TEMP 36; O2SAT 96
[2023-03-21 09:40] VITALS: BP 122/60; PULSE 66; RESP 16; TEMP 36.3; O2SAT 97
--- NOTE | 2023-03-21 09:57 | W.ANESPOSTOP ---
Postoperative Evaluation Date, Time and Location Date Performed: 03/21/23 Time Performed: 09:57 Patient Location: Day Surgery Unit Vital Signs Most Recent Imported Vital Signs: Most Recent Vital Signs Temp Pulse Resp BP Pulse Ox 36 C L 68 16 110/60 96 03/21/23 09:05 03/21/23 09:05 03/21/23 09:05 03/21/23 09:05 03/21/23 09:05 Pain Score Most Recent Pain Score: Most Recent Pain Score Pain Level 0 03/21/23 09:05 Assessment Mental Status: Awake (Alert & Oriented to Patient Baseline) Airway and Respiratory Function: Patent airway with normal (patient baseline) respiratory exam Cardiovascular Function: Hemodynamically Stable Hydration Status: Adequately Hydrated Nausea & Vomiting: No Nausea or Vomiting Pain: Pt. Denies Any Pain Peripheral Nerve Block: Patient did not receive a nerve block
== END 2023-03-21 09:55 | disposition home or self-care (01) ==
PROVIDERS: PCP Nurse Practitioner Family; Visit Provider Surgery
PROC: 0DJD8ZZ Inspection of Lower Intestinal Tract, Via Natural or Artificial Opening Endoscopic (ICD-10-PCS; CPT 45378; principal; 2023-03-21 09:00)
DX: Z12.11 Encounter for screening for malignant neoplasm of colon (principal); K62.1 Rectal polyp; Z86.010 Personal history of colon polyps
CPT/HCPCS: 45331; 88305

== ENCOUNTER 2023-04-15 00:43 | Outpatient (CLI) | payer SELFPAY ==
--- NOTE | 2023-04-15 07:45 | DI.MAMMO_ITS ---
Exam(s) MAMMO SCREENING EXAM: MAMMO SCREENING CLINICAL HISTORY: screening, Z12.39. TECHNIQUE: Bilateral full field digital CC and MLO mammographic images were obtained with 3D tomosyn thesis and utilizing computer aided detection (CAD). COMPARISON: Prior mammograms were reviewed. FINDINGS: There has been no significant change in the appearance and distribution of the fibroglandular tissue. There are no new spiculated masses nor malignant appearing microcalcification groups. Microcalcification group in the left breast is unchanged from prior studies. There is no significant architectural distortion nor skin thickening-retraction. IMPRESSION: No radiographic evidence of malignancy. Stable benign findings. BI-RADS Category 2 - Benign Findings Breast Density - Category B - Scattered areas of fibroglandular density Breast density Category C or D implies that the patient has dense breast tissue. Dense breast tissue can make it harder to find cancer on a mammogram. Dense breast tissue is also associated with an incr eased risk of breast cancer. This information about the result of the mammogram report was provided to the patient to raise their awareness. Use this report when you speak with the patient about their risks for breast cancer, which includes their family history. At that time, you may recommend additional screening tests (Ultrasoun d or MRI) as these tests may add significant information. A negative radiographic report should not delay biopsy if a dominant or clinically suspicious mass is present. Up to ten percent of cancers are not identified on mammography. A negative report may reinforce clinical impression. Adenosis and dense breasts may obscure an underlying neoplasm. False positive reports average 6 to 10%. Patient will receive a letter notifying them of these results.
== END 2023-04-15 01:03 ==
LOC: DI 00:43
PROVIDERS: PCP Nurse Practitioner Family; Visit Provider Nurse Practitioner Family
DX: Z12.31 Encounter for screening mammogram for malignant neoplasm of breast (principal)
CPT/HCPCS: 77063; 77067

== ENCOUNTER 2023-04-26 06:18 | Day surgery (SDC) | payer SELFPAY ==
[2023-04-26 06:29] VITALS: BP 122/60; PULSE 65; RESP 16; TEMP 36.2; O2SAT 99
--- NOTE | 2023-04-26 06:51 | ANES.PREOP_ITS ---
General Info Date of Service Date Performed: 04/26/23 Height: 5 ft 1 in Weight: 88.8 kg Body Mass Index (BMI): 37.0 Surgical Procedure: Operation Date: 04/26/23 07:35 Proposed Procedure Side Surgeon annalee Humphrey MD Meds Allergies and Home Medications Allergies Allergy/AdvReac Type Severity Reaction Status Date / Time Sulfa (Sulfonamide Allergy Intermediate Skin Rash Verified 04/26/23 06:26 Antibiotics) ezetimibe AdvReac Unknown MUSCLE PAIN Verified 04/26/23 06:26 Home Medication Medication Instructions Recorded Aspirin 1 tab PO DAILY 12/09/12 nitroglycerin 0.4 mg sublingual 1 tab sublingual PRN ##25 12/09/12 tablet diphenhydramine HCl 25 mg tablet 25 mg PO HS 12/16/17 B-complex with vitamin C 1 cap PO DAILY 12/01/20 cholecalciferol (vitamin D3) 50 50 mcg PO DAILY 12/01/20 mcg (2,000 unit) capsule lisinopril 10 mg tablet 10 mg PO DAILY #90 tabs 01/25/23 atenolol 25 mg tablet 25 mg PO DAILY #90 tabs 01/31/23 atorvastatin 80 mg tablet 80 mg PO QPM #90 tabs 01/31/23 fluoxetine 20 mg capsule 20 mg PO DAILY #90 tab-caps 01/31/23 glipizide 10 mg tablet 10 mg PO BID #180 tabs 01/31/23 levothyroxine 137 mcg tablet 137 mcg PO .COMPLEX #48 tabs 01/31/23 levothyroxine 150 mcg tablet 150 mcg PO .COMPLEX #48 tabs 01/31/23 metformin 500 mg tablet,extended 1,000 mg PO BID #180 tabs 02/27/23 release 24 hr Current Visit Medications: Current Medications Generic Name Dose Route Start Last Admin Trade Name Freq PRN Reason Stop Dose Admin Ringer's Solution 1,000 mls @ 80 mls/hr 04/26/23 06:00 IV 05/25/23 23:59 INFUSION [facility] IV Miscellaneous Supplies 1 each 04/26/23 06:00 Iv Access IV 05/25/23 23:59 DIRECTED SCOTT Sodium Chloride 0 ml 04/26/23 06:00 Normal Saline Flush 10 Ml Syr IV 05/25/23 23:59 PRN PRN Sodium Chloride 0 ml 04/26/23 06:00 Normal Saline 10 Ml Vial IJ 05/25/23 23:59 DIRECTED PRN Sterile Water 0 ml 04/26/23 06:00 Water,Injection,Sterile 10 Ml Vial IJ 05/25/23 23:59 DIRECTED PRN PFSH Active Problems Active Problems: Problem Status Onset Code Screen for colon cancer Z12.11 Atherosclerosis of [place] coronary artery 08/15/02 I25.10 Depressive disorder F32.9 Diabetes mellitus 02/04/13 E11.9 Essential hypertension 07/24/13 I10 Hyperlipidemia 02/04/13 E78.5 Hypothyroidism E03.9 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 does not f/u with cardiology anymore as she stated she was discharged from their care. Surgical History Surgical History Biopsy of breast right; ductal hyper-- History of bilateral ligation of fallopian tubes History of colonoscopy with polypectomy (~03/2023) Attempted to do Colonoscopy, polup removed/ pt to be r/s with added prep Stent placement rca-2002 STRESS TEST (09/24/13) DR. CLAROS Tobacco Smoking/Tobacco Use Status: Former Tobacco Use Passive smoking exposure: Yes Second hand exposure: Yes Alcohol Alcohol Intake: former Substance Use Substance use: Current Sobriety Substance use type: does not use Vital Signs and Lab Results Vital Signs Most Recent Vital Signs in EMR: Most Recent Vital Signs Temp Pulse Resp BP Pulse Ox 36.2 C L 65 16 122/60 99 04/26/23 06:29 04/26/23 06:29 04/26/23 06:29 04/26/23 06:29 04/26/23 06:29 Lab Results Blood Type / Crossmatch: No Data to Display Complete Blood Count: No Data to Display Complete Metabolic Panel: No Data to Display Liver Function Panel: No Data to Display Coagulation Panel: No Data to Display Cardiac Panel: No Data to Display Arterial Blood Gas: No Data to Display Venous Blood Gas: No Data to Display Pancreas Panel: No Data to Display Thyroid Panel: No Data to Display Infectious Disease: No Data to Display Blood Cultures: No Data to Display Toxicology Panel: No Data to Display Imaging and Studies Imaging and Studies Study information below may be from another EMR and interpreted by another provider. Please see original notes in EMR for more complete details. EKG Summary: DATE/TIME OF SERVICE: 10/27/202050 : 1960PERFORMING LOCATION: ER APPROVED REPORT Exam: Resting ECG Patient Location: E HR:61 bpm ECG Measurements Heart Rate 61 AXIS [place] 176 P 64 QRSd 86 QRS 45 QT 420 T53 QTc 422 Conclusion Sinus rhythm...normal P axis, V-rate 60- 99 Normal [place] There are no significant changes compared to prior EKG performed on 10/27/2020 at 17:08. Anesthesia Assessment and Plan Anesthesia History Personal History: No History of Anesthesia Complications Family History: No Family History of Anesthesia Complications Exercise Tolerance Exercise Tolerance: Metabolic Equivalents>4 Pertinent Negatives Pertinent Negatives: No Symptoms of GERD, No Major Cardiovascular Symptoms or Complaints, No Major Pulmonary Symptoms or Complaints and No History of CVA/TIA Cardiac & Pulmonary Exam Cardiac Exam: Normal S1/S2 Heart Sounds Pulmonary Exam: Clear Bilateral Breath Sounds Implantable Cardiac Device Does patient have a Pacemaker or an ICD?: No Airway Exam Known Difficult Airway: No Mallampati Class: 2 Mouth Opening: Normal (> 3cm) Thyromental Distance: Less than 3 cm Neck Range of Motion: Full ROM Neck Circumference: Normal Teeth Condition: Normal Dentition and Removable Dentures/Plates Upper (in place) ASA Classification ASA Score: ASA 2 Emergency Case?: No NPO Status NPO Status: NPO Clears >2 hours, Solids >8 hours Anesthesia Plan Resuscitation Status: Full Code Anesthesia Technique: General Anesthesia Airway Planned: Natural Airway Monitors Used: Standard Monitors Preoperative Comments:: Attempted colonoscopy one month ago with poor prep, incomplete.
[2023-04-26] MEDS: Lactated Ringers 1,000 ML 80 ML IV (06:52)
--- NOTE | 2023-04-26 07:00 | HPE_ITS ---
Assessment and Plan Assessment and plan (1) Screen for colon cancer: Status: Acute Assessment and plan: Second attempt at screening colonoscopy today. History of Present Illness History of Present Illness Chief Complaint: Screening colonoscopy Narrative: Amy is a 63-year-old woman who is due for her next screening colonoscopy. We did attempt this about a month ago. Unfortunately, the prep was inadequate. She has completed an extended prep over the past few days, and is optimistic that she is all cleaned out. She denies any significant interval changes in the history. 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; 02/22 + MPI stress test neg-09/29 Depressive disorder (Acute) Diabetes mellitus (Acute 02/04/13) Essential hypertension (Acute 07/24/13) Hyperlipidemia (Acute 02/04/13) Hypothyroidism (Acute) Tubulovillous adenoma (Acute ~07/2020) Tubular adenoma (Acute ~07/2020) Medical History Arteritis (12/14/06) Elev transaminase/LDH (10/16/07) elevated ferritin History of tobacco use Surgical History Biopsy of breast right; ductal hyper-- History of bilateral ligation of fallopian tubes History of colonoscopy with polypectomy (~03/2023) Attempted to do Colonoscopy, polup removed/ pt to be r/s with added prep Stent placement rca-2002 STRESS TEST (09/24/13) DR. CLAROS Family History Mother , age 75 Diabetes Essential hypertension Depression Hyperlipidemia Breast cancer Sister No problems noted. Brother Diabetes Essential hypertension Maternal Grandfather Diabetes Essential hypertension Heart disease Paternal Grandfather No problems noted. Maternal Grandmother No problems noted. Paternal Grandmother No problems noted. Brother No problems noted. Brother No problems noted. Daughter Depression Daughter Depression Social History Smoking/Tobacco Use Status: Former Tobacco Use Quit Date: 10/26/02 Tobacco: How many years used: 20 Second Hand Exposure: Yes Smoking risk assessment performed?: Yes Alcohol Intake: former Drug use: Current Sobriety Substance use type: does not use Caregiver/Support person: No Household members: spouse and children Housing: house Communication Needs: None Do you need help understanding health information?: Never current occupation: [employer] Pets and animals: Yes Pets and animals: dog(s) Sexually active: No Do you think of yourself as: straight/heterosexual Current gender identity: female What is your relationship status?: How often do you talk on the phone with friends or family?: never How often do you get together with friends or relatives?: decline to answer How often do you attend synagogue or sabianism services?: decline to answer Do you belong to any clubs or organized social groups?: no Panel score (0-1 are the most socially isolated patients): 1 What type of physical activity do you participate in: none Duration: decline to answer Frequency: does not exercise Fifi/Shinto: None Special fifi needs: No Seatbelt use: always 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: No Do you feel safe at home: Yes Do you feel safe in your relationship?: Yes Meds Allergies and Home Medications Allergies Allergy/AdvReac Type Severity Reaction Status Date / Time Sulfa (Sulfonamide Allergy Intermediate Skin Rash Verified 04/26/23 06:26 Antibiotics) ezetimibe AdvReac Unknown MUSCLE PAIN Verified 04/26/23 06:26 Home Medications Medication Instructions Recorded Confirmed Type Aspirin 1 tab PO DAILY 12/09/12 04/26/23 History nitroglycerin 0.4 mg sublingual 1 tab sublingual PRN ##25 12/09/12 04/25/23 History tablet diphenhydramine HCl 25 mg tablet 25 mg PO HS 12/16/17 04/26/23 History B-complex with vitamin C 1 cap PO DAILY 12/01/20 04/26/23 History cholecalciferol (vitamin D3) 50 50 mcg PO DAILY 12/01/20 04/26/23 History mcg (2,000 unit) capsule lisinopril 10 mg tablet 10 mg PO DAILY #90 tabs 01/25/23 04/26/23 Rx atenolol 25 mg tablet 25 mg PO DAILY #90 tabs 01/31/23 04/26/23 Rx atorvastatin 80 mg tablet 80 mg PO QPM #90 tabs 01/31/23 04/26/23 Rx fluoxetine 20 mg capsule 20 mg PO DAILY #90 tab-caps 01/31/23 04/26/23 Rx glipizide 10 mg tablet 10 mg PO BID #180 tabs 01/31/23 04/26/23 Rx levothyroxine 137 mcg tablet 137 mcg PO .COMPLEX #48 tabs 01/31/23 04/26/23 Rx levothyroxine 150 mcg tablet 150 mcg PO .COMPLEX #48 tabs 01/31/23 04/26/23 Rx metformin 500 mg tablet,extended 1,000 mg PO BID #180 tabs 02/27/23 04/26/23 Rx release 24 hr Exam Const General: cooperative, healthy appearing and comfortable Orientation: awake and oriented x3 Eyes General: appearance normal, both eyes and all related structures Conjunctivae: conjunctivae normal Sclera: sclerae normal Resp Effort & Inspection: normal respiratory effort and able to speak in complete sentences Auscultation: clear to auscultation bilaterally Cardio Jugular venous pressure: no JVD Rate: regular rate Rhythm: regular rhythm Heart Sounds: S1 normal and S2 normal GI Inspection: non-distended Palpation: soft, no guarding, no hernias and nontender Auscultation: normal bowel sounds Skin General skin exam: normal turgor Neuro General: patient alert, patient awake and patient oriented x3 Cognition: normal cognition Extrem Right lower extremity: no edema Left lower extremity: no edema Results Last Vital Signs Temp 97.2 F L 04/26/23 06:29 Pulse 65 04/26/23 06:29 Resp 16 04/26/23 06:29 BP 122/60 04/26/23 06:29 Pulse Ox 99 04/26/23 06:29
[2023-04-26 07:18] VITALS: BMI 37.0
--- NOTE | 2023-04-26 07:31 | BOWEL_PTH ---
PATIENT: Amy Boyd LOC: [facility] U#:[id number] AGE/SX: 63/F ROOM: RE04/26/[address]: Kendell Humphrey MD : 1960 BED: DIS: 04/26/2023 SPEC #: [id number] RECD: 04/26/23 13:02 STATUS: MARIEL Fredy #: [id number] MEGA: 04/26/23 07:[address]: Kendell Humphrey DEPT: Surgical Specimen RECD BY: Hayley Cook ENTERED: 04/26/23 13:04 SP TYPE: Bowel OTHR DR: Hailey Card, RADHA Tissues: 1 - POLYP 2 - POLYP 3 - POLYP 4 - POLYP Procedures: GROSS AND MICRO LEVEL 4 Comments: [id number]
[2023-04-26 08:00] VITALS: BP 103/51; PULSE 63; RESP 16; TEMP 36.4; O2SAT 100
[2023-04-26 08:24] VITALS: BP 110/54; PULSE 56; RESP 16; TEMP 36.2; O2SAT 99
--- NOTE | 2023-04-26 08:25 | W.PM.DSUDISC ---
Date of service: 04/26/23 Time of Service: 08:25 Discharge Plan Disposition Patient Disposition: Home Condition: Good Discharge Details Reason For Visit: Screening colonoscopy Attending Provider: Kendell Humphrey Primary Care Provider: Hailey Card Home Meds and New Rx's Prescriptions: Continued glipizide 10 mg tablet 10 mg PO BID Qty: 180 4RF atorvastatin 80 mg tablet 80 mg PO QPM Qty: 90 4RF levothyroxine 137 mcg tablet 137 mcg PO .COMPLEX Qty: 48 3RF Rx Instructions: saturday, saturday, saturday 137 mcg PO ; levothyroxine 150 mcg tablet 150 mcg PO .COMPLEX Qty: 48 3RF Rx Instructions: 4 days per week Saturday, Saturday, and Saturday 150 mcg PO ; fluoxetine 20 mg capsule 20 mg PO DAILY Qty: 90 4RF atenolol 25 mg tablet 25 mg PO DAILY Qty: 90 4RF cholecalciferol (vitamin D3) 50 mcg (2,000 unit) capsule 50 mcg PO DAILY B-complex with vitamin C Capsule 1 cap PO DAILY ASPIRIN 81 MG tablet 1 tab PO DAILY nitroglycerin 0.4 MG tablet, sublingual 1 tab Sublingual PRN Qty: 25 diphenhydramine HCl 25 MG tablet 25 mg PO HS lisinopril 10 mg tablet 10 mg PO DAILY Qty: 90 0RF metformin 500 mg tablet extended release 24 hr 1,000 mg PO BID Qty: 180 3RF Discharge Instructions Additional Instructions: Amy, it was great to see you today, and I am glad you have been doing well. We were able to finish the colonoscopy today without any difficulty. This prep was markedly better. I did find 4 polyps today. They were all fairly small. I removed them all completely. Based on your last colonoscopy, and the tubular adenoma that I found, I would anticipate another colonoscopy in 5 years. It is possible, that some of these polyps may change that, but I will keep my fingers crossed for now. Once I have the results of these polyps, I will be in touch. 1. If tolerated, consume a soft, low fiber diet for 1-2 days. 2[address] Do not drive, drink alcohol, operate machinery, make critical decisions, or do activities that require coordination or balance for 24 hours. 3. Because air was put into your colon during the procedure, expelling air from your rectum (passing gas or farting) is normal. 4. You may not have a bowel movement for 1-3 days because of the colonoscopy prep. This is normal. 5. Go directly to the emergency room if you notice any of the following: Develop chills (warm to touch), or if you have a thermometer and your temperature is above 101 Difficulty breathing or difficultly swallowing Persistent vomiting Severe abdominal pain, other than gas cramps Severe chest pain Black, tarry stools Any bleeding ? exceeding one tablespoon 6. Call your physician if the site where your intravenous was started becomes red, swollen, painful, and warm to touch. 7. Your physician has reviewed your pre-procedure medications. Please continue to take those medications as previously ordered. You will be given specific information/education regarding any changes to your medications before leaving. Activity:: Activity as Tolerated Diet:: As Tolerated DS: Diagnosis Discharge Diagnosis (1) Screen for colon cancer: Status: Acute
--- NOTE | 2023-04-26 08:30 | W.COLOREPORT ---
Date of service: 04/26/23 Time of Service: 08:31 Colonoscopy Report Date of procedure: 04/26/23 Pre-op diagnosis general: Screening colonoscopy Procedure: Colonoscopy with polypectomy Surgeon: Kendell Humphrey Anesthesia Type: General:No Airway Estimated blood loss (mL): 10 Pathology: other (Cecal polyp, polyps at 65, 60, and 50 cm) Complications: None Disposition: same day Indications: Abeba is a 63-year-old woman who needs a screening colonoscopy. Prep: Ramses Procedure Start Time: 07:26 Procedure End Time: 07:55 Retraction Time: 12 Findings: 0.5 cm cecal polyp, 0.25 cm polyps at 65, 60, 50 cm Procedure Description: After the induction of monitored anesthetic care, and with the patient in left lateral decubitus position, I began by performing an external anorectal exam.? Perineum and skin were normal, as was the anal verge.? There was no evidence of external hemorrhoids.? Next, I performed a digital rectal exam.? I did not appreciate any abnormal findings.? Next, I advanced a colonoscope into the rectal vault.? Using insufflation, I then advanced the colonoscope beyond the rectal folds and into the sigmoid colon before advancing towards the cecum.? The quality of the prep was much better than the previous. There was a small amount of semisolid stool that was easily irrigated.? The scope was noted to be in the cecum by identification of the ileocecal valve and appendiceal orifice.? I then began withdrawing the colonoscope using repeated irrigation as necessary for full evaluation of the colonic mucosa. Just be on the terminal ileum was a 0.5 cm sessile polyp. I removed it with cold forceps polypectomy. There was minimal bleeding. Similarly, I found sessile polyps at 65, 60, and 50 cm from the anal verge. All were less than 0.25 cm. I removed all of these with cold forceps as well. There was minimal bleeding from any of the sites. Once the scope was withdrawn to the level of the rectum, great care was taken to examine portions of the rectal folds.? Finally, the scope was withdrawn and the patient was brought to the same-day surgery recovery unit as the anesthetic wore off. ?The findings and instructions were shared with the patient prior to discharge.
--- NOTE | 2023-04-26 08:56 | W.ANESPOSTOP ---
Postoperative Evaluation Date, Time and Location Date Performed: 04/26/23 Time Performed: 08:42 Patient Location: Day Surgery Unit Vital Signs Most Recent Imported Vital Signs: Most Recent Vital Signs Temp Pulse Resp BP Pulse Ox 36.2 C L 56 L 16 110/54 L 99 04/26/23 08:24 04/26/23 08:24 04/26/23 08:24 04/26/23 08:24 04/26/23 08:24 Pain Score Most Recent Pain Score: Most Recent Pain Score Pain Level 0 04/26/23 08:24 Assessment Mental Status: Awake (Alert & Oriented to Patient Baseline) Airway and Respiratory Function: Patent airway with normal (patient baseline) respiratory exam Cardiovascular Function: Hemodynamically Stable Hydration Status: Adequately Hydrated Nausea & Vomiting: No Nausea or Vomiting Pain: Pt. Denies Any Pain Peripheral Nerve Block: Patient did not receive a nerve block
== END 2023-04-26 09:00 | disposition home or self-care (01) ==
PROVIDERS: PCP Nurse Practitioner Family; Visit Provider Surgery
PROC: 0DJD8ZZ Inspection of Lower Intestinal Tract, Via Natural or Artificial Opening Endoscopic (ICD-10-PCS; CPT 45378; principal; 2023-04-26 07:30)
DX: Z12.11 Encounter for screening for malignant neoplasm of colon (principal); Z86.010 Personal history of colon polyps; D12.0 Benign neoplasm of cecum; D12.4 Benign neoplasm of descending colon; D12.5 Benign neoplasm of sigmoid colon
CPT/HCPCS: 45380; 88305

== ENCOUNTER → 2023-05-14 00:35 | Outpatient (CLI) | payer SELFPAY ==
--- NOTE | 2023-05-14 07:15 | ETT_ITS ---
APPROVED REPORT Exam: Exercise Treadmill Patient Location: Out-Patient Room/Bed: Stress Nurse: Rita Juarez RN Ordering Provider:CLINTON DUNHAM, Contact Number: [phone] BMI: 37.02 Baseline Rhythm: Sinus Rhythm Indications: Atherosclerosis of [place] coronary artery Medical History Medical History: Diabetes Mellitus, depressive disorder, essential HTN, HLD, hypothyroidism Cardiac Medications: Nitro, metformin, lisinopril, levothyroxine, glipizide, fluoxetine, vitamin D3, atorvastatin, atenolol, aspirin Allergies: Sulfa, ezetimibe Cardiac Risk Factors: Family hx, HTN, HLD, CVD, diabetes, former smoker, obesoty Previous Cardiac Procedures: Stent placement RCA 2002 Pretest Chest Pain Characteristics: None Exercise History: Sedentary Physical Disabilities: None Lung Sounds: Clear to auscultation Heart Sounds: Regular Stress Test Details Test: Exercise stress testing was performed using a Tor[place] protocol. Rest Stress HR Resting HR Supine: 75 bpm Max Heart Rate (APMHR): 157 bpm Resting HR Standin bpm Target HR (85% APMHR): 133 bpm Max HR Achieved: 154 bpm % of APMHR: 98 Recovery HR: 87 bpm HR response to stress: Normal HR response to stress BP Resting BP Supine: 164/70 mmHg Resting BP Standin/62 mmHg Max BP: 190/60 mmHg Recovery BP: 164/78 mmHg BP response to stress: Normal blood pressure response to stress. ECG Resting ECG: Sinus Rhythm Ectopy: None Stress ECG: Sinus Tachycardia ST Change: No significant ST segment changes noted Arrhythmia: None Recovery ECG: Sinus Rhythm Recovery ST Change: No significant ST segment changes noted Recovery Arrhythmia: None Clinical Reason for Termination: Target HR Achieved Stress Symptoms: Chest tightness 10/26 Exercise duration: 05 min59 sec Highest Stage Reached: Stage 2: 2.5 mph at 12% grade. Exercise capacity: 7.05 METs Angina Score: Non-Limiting [place] Treadmill Score: 2 Rate Pressure Product: [id number] Stress ECG Conclusion 1. The resting electrocardiogram was normal 2. Patient exercised on the Torrey protocol and completed a workload of 7.05 METS 3. Normal heart rate and blood pressure response to exercise. The patient achieved 98% of predicted heart rate for age 4. There was no electrocardiographic evidence of myocardial ischemia 5. There were no significant dysrhythmias [place] Treadmill Score is 2 which is Moderate risk. Stress Test Summary STAGE Time (mins) Speed (mph) Grade (%) HR BP SpO2 SYMPTOMS METS Supine 74 164/70 96 Standing 88 148/62 96 1 3 1.7 10 145 174/72 2/10 chest tightness 4.5 1 min recovery 150 190/60 97 Chest pain resolved 3 min recovery 85 182/62 98 6 min recovery 87 164/78 97
== END ==
PROVIDERS: PCP Nurse Practitioner Family; Visit Provider Nurse Practitioner Family
DX: I25.10 Atherosclerotic heart disease of native coronary artery without angina pectoris (principal)
CPT/HCPCS: 93017

== ENCOUNTER 2023-11-28 03:12 | Outpatient (CLI) | payer SELFPAY ==
[2023-11-28 12:57] LABS: HCT 41.5 % (36.0-46.0); HGB 13.6 g/dL (11.2-15.7); MCH 30.2 pg (27.0-33.0); MCHC 32.8 % (32.0-36.0); MCV 92 fL (80-95); MPV 10.1 fL (8.0-11.0); Platelet Count 351 10^3/uL (130-400); RDW 12.8 % (11.7-14.6); RDW-SD 42.9 fL; WBC 7.08 10^3/uL (4.4-10.8)
[2023-11-28 13:19] LABS: Anion Gap 10.9 mmol/L (3-11); BUN 22 mg/dL (7-18); CO2 27.1 mmol/L (21.0-32.0); CREATININE 0.9 mg/dL (0.55-1.02); Calculated LDL 120 mg/dL (<100); Chloride 100 mmol/L (98-107); Cholesterol 201 mg/dL (<200); Estimated GFR 71.83 (mL/min/1.73m2); Glucose 372 mg/dL (74-106); HDL Cholesterol 38 mg/dL (40-60); Potassium 4.7 mmol/L (3.5-5.1); Sodium 138 mmol/L (136-145); TSH (W/Ref FT4) 0.81 uIU/mL (0.36-3.74); Triglyceride 217 mg/dL (<150)
== END 2023-11-28 03:13 | disposition home or self-care (01) ==
LOC: LBO 03:13
PROVIDERS: PCP Nurse Practitioner Family; Visit Provider Nurse Practitioner Family
DX: Z00.00 Encounter for general adult medical examination without abnormal findings (principal); I25.10 Atherosclerotic heart disease of native coronary artery without angina pectoris; E11.9 Type 2 diabetes mellitus without complications; I10 Essential (primary) hypertension
CPT/HCPCS: 36415; 80048; 80061; 85027; 84443

== ENCOUNTER 2023-12-09 19:03 | Outpatient (REF) | payer SELFPAY | END 2023-12-09 19:04 | disposition home or self-care (01) | LOC: LBN 19:03 | PROVIDERS: PCP Nurse Practitioner Family; Visit Provider Physician Assistant | DX: J02.9 Acute pharyngitis, unspecified (principal) | CPT/HCPCS: 87070 ==

== ENCOUNTER → 2024-04-16 01:46 | Outpatient (CLI) | payer SELFPAY ==
--- NOTE | 2024-04-16 06:45 | DI.MAMMO_ITS ---
Exam(s) MAMMO SCREENING EXAM: MAMMO SCREENING CLINICAL HISTORY: screening, Z12.39 TECHNIQUE: Mammograms were interpreted according to the usual protocol including computer analysis w Pryv CAD system, tomosynthesis and C-view imaging. COMPARISON: 2014 through 2022 FINDINGS: The breasts are composed of scattered fibroglandular densities, Breast Density category B. No suspicious masses or suspicious microcalcifications are seen. Benign calcifications again noted. Biopsy marker clip noted in right breast. No skin thickening or abnormal axillary lymph nodes are seen. There has been no significant change from prior exams. IMPRESSION: BI-RADS Category 2 - Benign Findings Yearly screening mammography is recommended. Breast Density - Category B, scattered fibroglandular densities. A negative radiographic report should not delay biopsy if a dominant or clinically suspicious mass is present. Up to ten percent of cancers are not identified on mammography. A negative report may reinforce clinical impression. Adenosis and dense breasts may obscure an underlying neoplasm. False positive reports average 6 to 10%. Patient will receive a letter notifying them of these results.
== END ==
PROVIDERS: PCP Nurse Practitioner Family; Visit Provider Nurse Practitioner Family
DX: Z12.39 Encounter for other screening for malignant neoplasm of breast (principal)
CPT/HCPCS: 77063; 77067

== ENCOUNTER 2024-10-01 16:53 | Observation (INO) | payer SELFPAY ==
[2024-10-01] VITALS (34 sets, daily range): BP systolic 131–202; BP diastolic 54–88; PULSE 58–87; RESP 12–24; TEMP 36–36.2; O2SAT 94–100
--- NOTE | 2024-10-01 18:54 | ED.GENADUL_ITS ---
Discharge Plan Disposition Patient Disposition: Admit to [facility] Condition: Stable Discharge Details Clinical Impression: Essential hypertension, Left leg weakness, Abnormal CT of brain Primary Care Provider: Hailey Card ED Provider: Nadia Bell Home Meds and New Rx's Prescriptions: No Action cholecalciferol (vitamin D3) 50 mcg (2,000 unit) capsule 50 mcg PO DAILY B-complex with vitamin C Capsule 1 cap PO DAILY ASPIRIN 81 MG tablet 1 tab PO DAILY nitroglycerin 0.4 MG tablet, sublingual 1 tab Sublingual PRN Qty: 25 diphenhydramine HCl 25 MG tablet 25 mg PO HS lisinopril 10 mg tablet 10 mg PO DAILY Qty: 90 3RF atenolol 25 mg tablet 25 mg PO DAILY Qty: 90 4RF levothyroxine 150 mcg tablet 150 mcg PO .COMPLEX Qty: 48 3RF Rx Instructions: 4 days per week Saturday, Saturday, and Saturday 150 mcg PO ; levothyroxine 137 mcg tablet 137 mcg PO .COMPLEX Qty: 48 3RF Rx Instructions: saturday, saturday, saturday 137 mcg PO ; fluoxetine 20 mg capsule 20 mg PO DAILY Qty: 90 4RF glipizide 10 mg tablet 10 mg PO BID Qty: 180 4RF atorvastatin 80 mg tablet 80 mg PO QPM Qty: 90 4RF metformin 500 mg tablet extended release 24 hr 1,000 mg PO BID Qty: 180 3RF HPI General Date/Time Provider Initiated Documentation: 10/01/24 17:07 . Limitations to Documentation: no limitations . Information obtained by: patient . HPI Narrative: 64-year-old female with past medical history of diabetes hypertension presents for evaluation after a fall. She reports that around noon today she fell in the snow while trying to get onto her schoolbus. 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 She is not completely sure why she fell but she thinks that she just slipped in the snow. But she became concerned because she had significant difficulty getting up. She states that she felt some weakness in her legs, left greater than right. She denies any numbness tingling. Denies any back pain, change in bowel or bladder. Denies any headache visual change speech change or facial asymmetry. She states that throughout the day she felt some heaviness in her left leg but she feels like is been improving. She denies any pain in the left leg of the left hip. Related Data Home Medications ?Medication ?Instructions ?Recorded ?Confirmed Aspirin 1 tab PO DAILY 12/09/12 10/01/24 nitroglycerin 0.4 mg sublingual 1 tab sublingual PRN ##25 12/09/12 10/01/24 tablet diphenhydramine HCl 25 mg tablet 25 mg PO HS 12/16/17 10/01/24 B-complex with vitamin C 1 cap PO DAILY 12/01/20 10/01/24 cholecalciferol (vitamin D3) 50 50 mcg PO DAILY 12/01/20 10/01/24 mcg (2,000 unit) capsule lisinopril 10 mg tablet 10 mg PO DAILY #90 tabs 10/31/23 10/01/24 atenolol 25 mg tablet 25 mg PO DAILY #90 tabs 02/05/24 10/01/24 levothyroxine 137 mcg tablet 137 mcg PO .COMPLEX #48 tabs 02/10/24 10/01/24 levothyroxine 150 mcg tablet 150 mcg PO .COMPLEX #48 tabs 02/10/24 10/01/24 fluoxetine 20 mg capsule 20 mg PO DAILY #90 tab-caps 02/20/24 10/01/24 glipizide 10 mg tablet 10 mg PO BID #180 tabs 05/26/24 10/01/24 atorvastatin 80 mg tablet 80 mg PO QPM #90 tabs 08/31/24 10/01/24 metformin 500 mg tablet,extended 1,000 mg (2 x 500 mg) PO BID #180 09/22/24 10/01/24 release 24 hr tabs Previous Rx's ?Medication ?Instructions ?Recorded lisinopril 10 mg tablet 10 mg PO DAILY #90 tabs 10/31/23 atenolol 25 mg tablet 25 mg PO DAILY #90 tabs 02/05/24 levothyroxine 137 mcg tablet 137 mcg PO .COMPLEX #48 tabs 02/10/24 levothyroxine 150 mcg tablet 150 mcg PO .COMPLEX #48 tabs 02/10/24 fluoxetine 20 mg capsule 20 mg PO DAILY #90 tab-caps 02/20/24 glipizide 10 mg tablet 10 mg PO BID #180 tabs 05/26/24 atorvastatin 80 mg tablet 80 mg PO QPM #90 tabs 08/31/24 metformin 500 mg tablet,extended 1,000 mg (2 x 500 mg) PO BID #180 09/22/24 release 24 hr tabs Allergies Allergy/AdvReac Type Severity Reaction Status Date / Time Sulfa (Sulfonamide Allergy Intermediate Skin Rash Verified 10/01/24 17:04 Antibiotics) ezetimibe AdvReac Unknown MUSCLE PAIN Verified 10/01/24 17:04 General Stated Complaint: Fall/Non TraumaCriteria WILBER: 3 Exam Narrative Exam Narrative: Review of Systems: All systems reviewed & are unremarkable except as noted in HPI and below Well-developed, no acute distress NCAT RRR, No murmur Unlabored respiraory effort, ctab Nondistended abdomen , soft nontender Extremities w/o deformity, No midline back pain step-off tenderness or deformity No facial asymmetry, normal speech, no past-pointing, 5 out of 5 right lower extremity strength, 3/5 LLE with lifting, seems strong with lowering against resistance, able to pull knee to bent and lift foot from there Course Vital Signs Vital signs: Vital Signs Temperature 36.0 C L 10/01/24 16:58 Pulse 87 10/01/24 16:58 Respiratory Rate 22 10/01/24 16:58 Blood Pressure 174/88 H 10/01/24 16:58 Pulse Oximetry 98 10/01/24 16:58 Temperature 36.0 C L 10/01/24 16:58 Temperature Source Temporal Artery Scan 10/01/24 16:58 Pulse 87 10/01/24 16:58 Respiratory Rate 22 10/01/24 16:58 Blood Pressure 174/88 H 10/01/24 16:58 Blood Pressure Position Sitting 10/01/24 16:58 Pulse Oximetry 98 10/01/24 16:58 Oxygen Delivery Method Room Air 10/01/24 16:58 Oxygen Flow Rate 0 10/01/24 16:58 Pain Level 0 10/01/24 16:58 Medical Decision Making Emergent evaluation after a fall. Patient reports some recent falls all seem to be mechanical and provoked. Today's episode was likely provoked given that she was out on the snow. She has a subjective left lower extremity weakness, but symptoms are improving. DDx includes CVA, electrolyte derangement, rhabdomyolysis. Will get CT imaging to evaluate for acute intracranial process as well. [address] report with MONIE, concern for acute R Int Capsule infarct, calling it an acute infarct. Outside window for thrombolytic treatment. Tele neuro evaluation has been set up. 2114 Patient was evaluated by Dr. Urbano with teleneurology. Review of the CT imaging and the patient provides a more complicated picture. He does not feel that the right internal capsule hypodensity is concerning for an acute infarct, but he is more concerned with left sided hypodensity that is fairly extensive. He states that the patient has not reported history of cerebral vasculitis that she took steroids for and got better but says that this clinically does not make sense. He recommends admission, full dose aspirin, and MR imaging with and without contrast. The patient's left lower extremity weakness has almost resolved. 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; 02/22 + MPI stress test neg-09/29 Depressive disorder (Acute) Diabetes mellitus (Acute 02/04/13) Essential hypertension (Acute 07/24/13) Hyperlipidemia (Acute 02/04/13) Hypothyroidism (Acute) Tubulovillous adenoma (Acute ~07/2020) Tubular adenoma (Acute ~04/2023) Medical History Arteritis (12/14/06) History of tobacco use Elev transaminase/LDH (10/16/07) elevated ferritin Surgical History History of colonoscopy with polypectomy (~04/2023) Attempted to do Colonoscopy, polup removed/ pt to be r/s with added prep History of bilateral ligation of fallopian tubes Stent placement [id number]-[id number] STRESS TEST (09/24/13) DR. CLAROS Biopsy of breast right; ductal hyper-- Family History Mother , age 75 Diabetes Essential hypertension Depression Hyperlipidemia Breast cancer Sister No problems noted. Brother Diabetes Essential hypertension Maternal Grandfather Diabetes Essential hypertension Heart disease Paternal Grandfather No problems noted. Maternal Grandmother No problems noted. Paternal Grandmother No problems noted. Brother No problems noted. Brother No problems noted. 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 Pets and animals: Yes Pets and animals: dog(s) Sexually active: No Do you think of yourself as: straight/heterosexual Current gender identity: female What is your relationship status?: How often do you talk on the phone with friends or family?: never How often do you get together with friends or relatives?: decline to answer How often do you attend catholic or anabaptism services?: decline to answer Do you belong to any clubs or organized social groups?: no Panel score (0-1 are the most socially isolated patients): 1 What type of physical activity do you participate in: none Duration: 15-30 minutes/day Frequency: does not exercise Fifi/Gnosticist: None Special fifi needs: No Seatbelt use: always Drive intox or ride w/intox 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
[2024-10-01 18:55] LABS: Abs Immature Grans 0.08 10^3/uL (0.0-0.06); Absolute Basophil Count 0.05 10^3/uL (0.0-0.2); Absolute Eosinophil Count 0.08 10^3/uL (0.0-0.7); Absolute Lymphocyte Count 2.21 10^3/uL (1.2-3.4); Absolute Monocyte Count 0.57 10^3/uL (0.1-0.8); Absolute Neutrophil Count 7.05 10^3/uL (1.2-6.7); Basophils % 0.5 %; Eosinophils % 0.8 %; HCT 41.7 % (36.0-46.0); HGB 13.9 g/dL (11.2-15.7); Immature Grans % 0.8 %; MCH 30.5 pg (27.0-33.0); MCHC 33.3 % (32.0-36.0); MCV 91 fL (80-95); MPV 9.1 fL (8.0-11.0); Monocytes % 5.7 %; Neutrophils % 70.2 %; Platelet Count 357 10^3/uL (130-400); RBC 4.56 10^6/uL (3.93-5.22); RDW 12.1 % (11.7-14.6); RDW-SD 40.1 fL; WBC 10.04 10^3/uL (4.4-10.8)
[2024-10-01 19:16] LABS: ALT 35 U/L (14-59); AST 19 U/L (15-37); Albumin 3.3 g/dL (3.4-5.0); Alkaline Phosphatase 65 U/L (46-116); BUN 23 mg/dL (7-18); Bilirubin, Total 0.41 mg/dL (0.2-1.0); CREATININE 0.9 mg/dL (0.55-1.02); Calcium 9.2 mg/dL (8.5-10.1); Chloride 101 mmol/L (98-107); Estimated GFR 71.39 (mL/min/1.73m2); Glucose 358 mg/dL (74-106); Magnesium 1.6 mg/dL (1.8-2.4); Potassium 4.1 mmol/L (3.5-5.1); Sodium 135 mmol/L (136-145); Total Protein 7.4 g/dL (6.4-8.2)
--- NOTE | 2024-10-01 19:32 | DI.CT_ITS ---
Exam(s) CT HEAD WO EXAM: CT HEAD WO CLINICAL HISTORY: l leg weakness. TECHNIQUE: Imaging Protocol: Axial computed tomography images with coronal and sagittal reformatted images were created and reviewed COMPARISON: No exams were available for comparison FINDINGS: Ventricles and Extra axial spaces: Normal in size and morphology for the patient's age. Hemorrhage: None. Cerebral parenchyma: Area of decreased attenuation in the left frontal lobe, likely left representing an old infarct. Small hypodensity seen in the left posterior parietal lobe, also likely old infarct . Rounded CSF CSF attenuation in the right basal ganglia, consistent with prominent perivascular spa ce. Additional small hypodensity in the anterior limb of the right internal capsule, representing la cunar infarct of indeterminate age. No evidence of a mass. Midline shift: None. Brainstem/Cerebellum: Normal. Calvarium: Normal. Visualized Paranasal sinuses:Clear. Mastoids: Clear. Soft Tissues: Unremarkable. ORBITS: Unremarkable. PITUITARY: Not enlarged. IMPRESSION: Small area decreased attenuation in the anterior limb of the right internal capsule, lacunar infarct of indeterminate age. Areas of old infarct in the left frontal and parietal lobes. RADIATION DOSE DELIVERED: 797.69mGy.cm Total DLP DATA REPOSITORY: All CT scans at this facility are submitted to the National Radiology Data Registry (NRDR) Dose Index Registry (DIR) with the [employer] (ACR). RADIATION OPTIMIZATION: All CT scans at this facility use at least one of these dose optimization te chniques: automated exposure control; mA and/or kV adjustment per patient size (includes targeted exa ms where dose is matched to clinical indication); or iterative reconstruction.
[2024-10-01 19:33] LABS: Creatine Kinase 94 U/L (26-192)
[2024-10-01] MEDS: MAGNESIUM SULFATE 2 GM/50 ML BAG IVINF (19:39)
--- NOTE | 2024-10-01 20:26 | DI.VRAD_ITS ---
PROCEDURE INFORMATION: Exam: CT Head Without Contrast Exam date and time: 10/01/2024 7:25 PM Age: 64 years old Clinical indication: L leg weakness TECHNIQUE: Imaging protocol: Computed tomography of the head without contrast. Radiation optimization: All CT scans at this facility use at least one of these dose optimization techniques: automated exposure control; mA and/or kV adjustment per patient size (includes targeted exams where dose is matched to clinical indication); or iterative reconstruction. COMPARISON: No relevant prior studies available. FINDINGS: Brain: Hypodensity involving the anterior limb of the right internal capsule raises concern for possible acute lacunar infarct. Prominent VR space within the inferior right basal ganglia. Age-related involutional changes and chronic microvascular ischemic disease. No mass effect or midline shift. No extra-axial collection. No acute intracranial hemorrhage. Basal cisterns are patent. Cerebral ventricles: No ventriculomegaly. Paranasal sinuses: Visualized sinuses are unremarkable. No fluid levels. Mastoid air cells: Visualized mastoid air cells are well aerated. Bones: Unremarkable. No acute fracture. Soft tissues: Unremarkable. IMPRESSION: Hypodensity involving the anterior limb of the right internal capsule raises concern for possible acute lacunar infarct. This can be further confirmed with MRI brain. No acute hemorrhage. THIS REPORT CONTAINS FINDINGS THAT MAY BE CRITICAL TO PATIENT CARE. The findings were verbally communicated via telephone conference with TEVIN SEYMOUR at 8:15 PM EST on 10/01/2024. The findings were acknowledged and understood. Dictated and Authenticated by: Hector Beach MD. Ordering:[facility] Arabella Tinajero MD
--- NOTE | 2024-10-01 20:30 | RT.EKG_ITS ---
APPROVED REPORT Exam: Resting ECG Reason for Exam: cva Patient Location: E HR:65 bpm ECG Measurements Heart Rate 65 AXIS TX 191 P 57 QRSd 92 QRS 39 QT 427 T 64 QTc 444 Conclusion Sinus rhythm 65 normal axis no stemi
[2024-10-01] MEDS: Aspirin 325 MG TAB PO (22:49)
--- NOTE | 2024-10-01 22:54 | W.PM.HP.N ---
Date of service: 10/01/24 Time of Service: 22:54 Assessment and Plan Assessment and plan (1) Abnormal CT of brain: Status: Acute Assessment and plan: The V rad reading points toward a lacunar infarct on the right. There is a discrepancy with teleneuro as to the acuteness of that finding. An MRI will be ordered for tomorrow with and without contrast. She is going to get full dose aspirin tonight and resume aspirin 81 mg daily for now. Admit to observation status. (2) Left leg weakness: Status: Acute Assessment and plan: No clear etiology at this point. She may have landed awkwardly on that leg but what ever strain or sprain appears to have resolved. Still not ruled out that there is a neurologic basis for this left leg weakness. (3) Atherosclerosis of [place] coronary artery: Status: Acute Assessment and plan: History of NC at age 42. She had a stent x 1. She has had no recurrent chest pain and is no longer using nitro. (4) Diabetes mellitus: Status: Acute Assessment and plan: Type II diabetic. Blood sugar 358 on admission. Will continue her usual outpatient meds and check fingersticks and sliding scale insulin. (5) Essential hypertension: Status: Acute Assessment and plan: Hypertension, blood pressure 202/77 on admission. Will resume her usual meds and monitor. (6) Hyperlipidemia: Status: Acute Assessment and plan: Continue on statin therapy. (7) Hypothyroidism: Status: Acute Assessment and plan: Thyroid replacement therapy was ordered as her usual. (8) Hypomagnesemia: Status: Inactive Assessment and plan: Magnesium 1.6 on admission. Will give a 2 g bolus and recheck level in the a.m. 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 She attributed the fall to snowy icy conditions. It took her 10 minutes to get up and she is having difficulty moving her left leg. Her left leg felt heavy and not as strong as her right leg. In the emergency room she did have some weakness in that left leg. A head CT initially read as an acute right inferior capsule infarct. [facility] teleneuro was consulted. They felt there was a hypodense area on the left side and the right side lacunar infarct did not look acute. The recommendation was for her to get an MRI with and without contrast in 2 start aspirin. By the time she leaves the ER the left leg is moving much better. She cannot lift it off the gurney and flex it quite readily. Review of Systems Narrative: Patient was previously feeling fine. She did not have any antecedent chest pain or shortness of breath. No headache. It seemed like an innocent fall but then difficulty using that left leg. She has no history of atrial fibrillation or other arrhythmia. She has a remote history of an NC at age 42 related to heavy smoking. She has a history of cerebral vasculitis and spent 10 days at [facility] back in 2017. [facility] All Active Problems (Updated 10/01/24 @ 22:57 by Carlito Arreola MD) Abnormal CT of brain (Acute) Left leg weakness (Acute) Atherosclerosis of [place] coronary artery (Acute 08/15/02) inferior NC; stent [employer]; 02/22 + MPI stress test neg-09/29 Diabetes mellitus (Acute 02/04/13) Essential hypertension (Acute 07/24/13) Hyperlipidemia (Acute 02/04/13) Hypothyroidism (Acute) Medical History (Updated 10/01/24 @ 22:57 by Carlito Arreola MD) Tubular adenoma (~04/2023) Tubulovillous adenoma (~07/2020) Depressive disorder Screen for colon cancer Arteritis (12/14/06) History of tobacco use Elev transaminase/LDH (10/16/07) elevated ferritin Surgical History History of colonoscopy with polypectomy (~04/2023) Attempted to do Colonoscopy, polup removed/ pt to be r/s with added prep History of bilateral ligation of fallopian tubes Stent placement [id number]-2002 STRESS TEST (09/24/13) DR. CLAROS Biopsy of breast right; ductal hyper-- Family History Mother , age 75 Diabetes Essential hypertension Depression Hyperlipidemia Breast cancer Sister No problems noted. Brother Diabetes Essential hypertension Maternal Grandfather Diabetes Essential hypertension Heart disease Paternal Grandfather No problems noted. Maternal Grandmother No problems noted. Paternal Grandmother No problems noted. Brother No problems noted. Brother No problems noted. 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 Pets and animals: Yes Pets and animals: dog(s) Sexually active: No Do you think of yourself as: straight/heterosexual Current gender identity: female What is your relationship status?: How often do you talk on the phone with friends or family?: never How often do you get together with friends or relatives?: decline to answer How often do you attend denominational or zoroastrianism services?: decline to answer Do you belong to any clubs or organized social groups?: no Panel score (0-1 are the most socially isolated patients): 1 What type of physical activity do you participate in: none Duration: 15-30 minutes/day Frequency: does not exercise Fifi/Hinduism: None Special fifi needs: No Seatbelt use: always Drive intox or ride w/intox 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: No Do you feel safe at home: Yes Do you feel safe in your relationship?: Yes Meds Allergies and Home Medications Allergies Allergy/AdvReac Type Severity Reaction Status Date / Time Sulfa (Sulfonamide Allergy Intermediate Skin Rash Verified 10/01/24 17:04 Antibiotics) ezetimibe AdvReac Unknown MUSCLE PAIN Verified 10/01/24 17:04 Home Medications ?Medication ?Instructions ?Recorded ?Confirmed ?Type Aspirin 1 tab PO DAILY 12/09/12 10/01/24 History nitroglycerin 0.4 mg sublingual 1 tab sublingual PRN ##25 12/09/12 10/01/24 History tablet diphenhydramine HCl 25 mg tablet 25 mg PO HS 12/16/17 10/01/24 History B-complex with vitamin C 1 cap PO DAILY 12/01/20 10/01/24 History cholecalciferol (vitamin D3) 50 50 mcg PO DAILY 12/01/20 10/01/24 History mcg (2,000 unit) capsule lisinopril 10 mg tablet 10 mg PO DAILY #90 tabs 10/31/23 10/01/24 Rx atenolol 25 mg tablet 25 mg PO DAILY #90 tabs 02/05/24 10/01/24 Rx levothyroxine 137 mcg tablet 137 mcg PO .COMPLEX #48 tabs 02/10/24 10/01/24 Rx levothyroxine 150 mcg tablet 150 mcg PO .COMPLEX #48 tabs 02/10/24 10/01/24 Rx fluoxetine 20 mg capsule 20 mg PO DAILY #90 tab-caps 02/20/24 10/01/24 Rx glipizide 10 mg tablet 10 mg PO BID #180 tabs 05/26/24 10/01/24 Rx atorvastatin 80 mg tablet 80 mg PO QPM #90 tabs 08/31/24 10/01/24 Rx metformin 500 mg tablet,extended 1,000 mg (2 x 500 mg) PO BID #180 09/22/24 10/01/24 Rx release 24 hr tabs Exam Narrative Exam Narrative: On exam she is pleasant and in no apparent distress. When I examined her she was able to lift her left leg up off the gurney to a height of about 2 feet. She can flex and extend the leg at the knee without any difficulty. She can move her toes. Sensation is intact. Her heart sounds are regular and there is no murmur her lung sounds are clear on the right and left. Her abdomen is quite obese but overall nontender to palpation. The remainder of her neuroexam is nonfocal with good facial symmetry and moving all extremities with good purposeful movements. Results Labs 10/01/24 18:48 10/01/24 18:48 Labs: Laboratory Results - last 24 hr 10/01/24 18:48 WBC 10.04 RBC 4.56 Hgb 13.9 Hct 41.7 MCV 91 MCH 30.5 MCHC 33.3 RDW 12.1 Plt Count 357 MPV 9.1 Immature Gran % 0.8 Neutrophils % 70.2 Lymphocytes % 22.0 Monocytes % 5.7 Eosinophils % 0.8 Basophils % 0.5 Nucleated RBC % 0.0 Absolute Neutrophils 7.05 H Absolute Lymphocytes 2.21 Absolute Monocytes 0.57 Absolute Eosinophils 0.08 Absolute Basophils 0.05 Sodium 135 L Potassium 4.1 Chloride 101 Carbon Dioxide 26.0 Anion Gap 8.0 BUN 23 H Creatinine 0.9 Est GFR (CKD-EPI 2020) 71.39 Glucose 358 H Calcium 9.2 Magnesium 1.6 L Total Bilirubin 0.41 AST 19 ALT 35 Alkaline Phosphatase 65 Creatine Kinase 94 Total Protein 7.4 Albumin 3.3 L Last Vital Signs Temp 36.0 C L 10/01/24 16:58 Pulse 65 10/01/24 22:46 Resp 16 10/01/24 22:50 BP 159/63 H 10/01/24 22:46 Pulse Ox 95 10/01/24 22:50 Time Spent Time spent with Patient: 40-54 minutes Time was spent: preparing to see the patient(eg.review tests), obtaining and/or reviewing separately otained hiistory, ordering medications,tests, procedures, referring, communicating with other health career center director, indepentently interpreting results and counseling the patient
--- NOTE | 2024-10-01 23:01 | W.PC.ACHO ---
Registration Status: Primary Language: Preferred Language: ED Information & Data Chief Complaint Fall/Non TraumaCriteria 10/01/24 19:01 Triage Note Pt has fallen three times in 10/01/24 16:58 last few weeks, believes lower legs are weak and keep buckling. Fell today, no injuries. Pt denies pain, no past back injuries, no incontinence. Sensation and motor equal in all extremities. Pt states feels like left leg is a little harder to lift, no issue with any other extremities. Denies dizziness, vision changes, etc. Only occurs with movement. Medical / Surgical History (Last Reviewed 10/01/24 @ 18:59 by Nadia Bell MD) Arteritis (12/14/06) History of tobacco use Elev transaminase/LDH (10/16/07) (Last Reviewed 10/01/24 @ 18:59 by Nadia Bell MD) History of colonoscopy with polypectomy (~04/2023) History of bilateral ligation of fallopian tubes Stent placement STRESS TEST (09/24/13) Biopsy of breast Most Recent Vital Signs Temperature 36.0 C L 10/01/24 16:58 Temperature Source Temporal Artery Scan 10/01/24 16:58 Pulse 65 10/01/24 22:46 Pulse 77 10/01/24 22:50 Respiratory Rate 16 10/01/24 22:50 Blood Pressure 159/63 H 10/01/24 22:46 Blood Pressure Mean 92 10/01/24 22:46 Blood Pressure Position Sitting 10/01/24 16:58 Pulse Oximetry 95 10/01/24 22:50 Oxygen Delivery Method Room Air 10/01/24 16:58 Oxygen Flow Rate 0 10/01/24 16:58 Pain Level 0 10/01/24 16:58 Allergies Sulfa (Sulfonamide Antibiotics) Allergy (Intermediate, Verified 10/01/24 17:04) Skin Rash ezetimibe Adverse Reaction (Unknown, Verified 10/01/24 17:04) MUSCLE PAIN IV IV Catheter Type [Left Peripheral IV Antecubital] IV Catheter Gauge [Left 18 Antecubital] Diagnostics 10/01/24 Range/Units 18:48 WBC 10.04 (4.4-10.8) 10^3/uL RBC 4.56 (3.93-5.22) 10^6/uL Hgb 13.9 (11.2-15.7) g/dL Hct 41.7 (36.0-46.0) % MCV 91 (80-95) fL MCH 30.5 (27.0-33.0) pg MCHC 33.3 (32.0-36.0) % RDW 12.1 (11.7-14.6) % Plt Count 357 (130-400) 10^3/uL MPV 9.1 (8.0-11.0) fL Immature Gran % 0.8 % Neutrophils % 70.2 % Lymphocytes % 22.0 % Monocytes % 5.7 % Eosinophils % 0.8 % Basophils % 0.5 % Nucleated RBC % 0.0 (0.0-0.3) % Absolute Neutrophils 7.05 H (1.2-6.7) 10^3/uL Absolute Lymphocytes 2.21 (1.2-3.4) 10^3/uL Absolute Monocytes 0.57 (0.1-0.8) 10^3/uL Absolute Eosinophils 0.08 (0.0-0.7) 10^3/uL Absolute Basophils 0.05 (0.0-0.2) 10^3/uL Sodium 135 L (136-145) mmol/L Potassium 4.1 (3.5-5.1) mmol/L Chloride 101 (98-107) mmol/L Carbon Dioxide 26.0 (21.0-32.0) mmol/L Anion Gap 8.0 (3-11) mmol/L BUN 23 H (7-18) mg/dL Creatinine 0.9 (0.55-1.02) mg/dL Est GFR (CKD-EPI 2020) 71.39 (mL/min/1.73m2) Glucose 358 H (74-106) mg/dL Calcium 9.2 (8.5-10.1) mg/dL Magnesium 1.6 L (1.8-2.4) mg/dL Total Bilirubin 0.41 (0.2-1.0) mg/dL AST 19 (15-37) U/L ALT 35 (14-59) U/L Alkaline Phosphatase 65 (46-116) U/L Creatine Kinase 94 (26-192) U/L Total Protein 7.4 (6.4-8.2) g/dL Albumin 3.3 L (3.4-5.0) g/dL Intake and Output - 24 Hour Total 10/01/24 16:53 thru 10/01/24 20:10 Intake Total 60 Balance 60 Weight 90.718 kg Intake: IV 60 Falls Risk Assessment History of Falls Admit Due to Fall 10/01/24 18:05 Contributing Factors Impairments 10/01/24 18:05 Tubes/Lines None 10/01/24 18:05 Gait Evaluation W/no contributing factors 10/01/24 18:05 Cognition No cognitive impairment 10/01/24 18:05 Fall Total Score 38 10/01/24 18:05 Level of Risk Moderate Risk 10/01/24 18:05 Problems (Last Reviewed 10/01/24 @ 18:59 by Nadia Bell MD) Abnormal CT of brain (Acute) Left leg weakness (Acute) Essential hypertension (Acute 07/24/13) v v v v v v v v v Sending and/or Receiving Nurses: Please use comment section below to note any information pertinent to the patient hand-off not included above. Information / Comments: Here for stroke workup, tele neuro believes inflammation in the brain vs stroke. Had neuritis in 2006 but this time it is a different presentation. Had fall at work today and lost function in legs could not get up. L weaker than R. Ambulates standby. A+O. 18g L AC. VSS 159/63, 96% on RA Report received from: Devon called at [phone] called back and recieved report at [phone]
--- NOTE | 2024-10-02 | DI.MRI_ITS ---
Exam(s) MR ANGIO NECK WO EXAM: MR ANGIO NECK WO CLINICAL HISTORY: cva. TECHNIQUE: Multiplanar multisequence MRA of the Neck was performed. COMPARISON: CT CT HEAD WO from 10/01/2024 FINDINGS: There is patient motion artifact. Common Carotid: Right: No dissection, occlusion or significant stenosis. Left: No dissection, occlusion or significant stenosis. External Carotid: Right: No evidence of occlusion or significant stenosis. Left: No evidence of occlusion or significant stenosis. Internal Carotid: Right: No dissection, occlusion or significant stenosis. Left: No dissection, occlusion or significant stenosis. Vertebral Artery: Right: No dissection, occlusion or significant stenosis. Left: No dissection, occlusion or significant stenosis. The visualized paraspinal soft tissues are unremarkable. IMPRESSION: No evidence of dissection, occlusion or significant stenosis. DATA REPOSITORY:
--- NOTE | 2024-10-02 | DI.MRI_ITS ---
Exam(s) MR ANGIO BRAIN WO CLINICAL HISTORY: CVA. TECHNIQUE: Multiplanar multisequence MRA of the brain was performed. COMPARISON: CT CT HEAD WO from 10/01/2024 MR MR BRAIN WO/W from 10/02/2024 FINDINGS: Carotid Arteries: No aneurysm, occlusion or significant stenosis. Anterior Cerebral Arteries: Right: No aneurysm, occlusion or significant stenosis. Left: No aneurysm, occlusion or significant stenosis. Middle Cerebral Arteries: Right: No aneurysm, occlusion or significant stenosis. Left: No aneurysm, occlusion or significant stenosis. Posterior Cerebral Arteries: Right: No aneurysm, occlusion or significant stenosis. Left: No aneurysm, occlusion or significant stenosis. Vertebral Arteries: Right: No aneurysm, occlusion or significant stenosis. Left: No aneurysm, occlusion or significant stenosis. Basilar Artery: No aneurysm, occlusion or significant stenosis. IMPRESSION: Normal MRA examination of the [place]. DATA REPOSITORY:
[2024-10-02] MEDS: MAGNESIUM SULFATE 2 GM/50 ML BAG IV_INF (00:28)
[2024-10-02 03:34] VITALS: BP 112/54; PULSE 66; RESP 16; TEMP 36.5; O2SAT 98
[2024-10-02 06:19] LABS: Abs Immature Grans 0.07 10^3/uL (0.0-0.06); Absolute Basophil Count 0.06 10^3/uL (0.0-0.2); Absolute Eosinophil Count 0.11 10^3/uL (0.0-0.7); Absolute Lymphocyte Count 2.22 10^3/uL (1.2-3.4); Absolute Monocyte Count 0.67 10^3/uL (0.1-0.8); Absolute Neutrophil Count 6.18 10^3/uL (1.2-6.7); Basophils % 0.6 %; Eosinophils % 1.2 %; HCT 40.6 % (36.0-46.0); HGB 13.6 g/dL (11.2-15.7); Immature Grans % 0.8 %; Lymphocytes % 23.8 %; MCH 30.5 pg (27.0-33.0); MCHC 33.5 % (32.0-36.0); MCV 91 fL (80-95); MPV 9.1 fL (8.0-11.0); Monocytes % 7.2 %; Neutrophils % 66.4 %; Platelet Count 332 10^3/uL (130-400); RBC 4.46 10^6/uL (3.93-5.22); RDW-SD 39.9 fL; WBC 9.31 10^3/uL (4.4-10.8)
[2024-10-02 06:29] LABS: Anion Gap 9.5 mmol/L (3-11); BUN 19 mg/dL (7-18); CO2 25.5 mmol/L (21.0-32.0); CREATININE 0.8 mg/dL (0.55-1.02); Calcium 8.4 mg/dL (8.5-10.1); Chloride 101 mmol/L (98-107); Estimated GFR 82.23 (mL/min/1.73m2); Glucose 367 mg/dL (74-106); Magnesium 2.3 mg/dL (1.8-2.4); Potassium 4.2 mmol/L (3.5-5.1); Sodium 136 mmol/L (136-145)
[2024-10-02 08:20] VITALS: BP 135/66; PULSE 66; RESP 16; TEMP 36.2; O2SAT 95
[2024-10-02] MEDS: glipiZIDE 10 MG TAB PO ×2 (09:21→16:48)
[2024-10-02] MEDS: metFORMIN C.R. 500 MG TABCR 1000 MG PO (09:21)
[2024-10-02] MEDS: LORazepam 1 MG TAB PO ×2 (09:21→15:14)
[2024-10-02] MEDS: Atenolol 25 MG TAB PO (09:21)
[2024-10-02] MEDS: FLUoxetine 20 MG CAP PO (09:22)
[2024-10-02] MEDS: Lisinopril 10 MG TAB PO (09:22)
[2024-10-02] MEDS: Aspirin 81 MG CHEW CH (09:22)
[2024-10-02] MEDS: Normal Saline Flush 10 ML SYR IVP ×3 (09:26→19:44)
--- NOTE | 2024-10-02 09:29 | INITIAL_ITS ---
Date of service: 10/02/24 Time of Service: 09:29 Care Management Initial Assmt Initial Assessment Reason for Hospitalization: r/o CVA Functional Status/Living Situation Patient Presentation: Amy was sitting up in bed when CM met with her. She was polite but reserved in manner. Amy lives in a mobile with her and one of her adult daughters.Her other daughter lives in [facility] with her and 2 children. 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 On Saturdays she provides respite for a patient who has disabilities. Amy is independent at baseline and does not receive ant services. She is currently using a cane for ambulatory assistance as she still has weakness in her left leg. Amy does not have any insurance. She will turn 65 in January and was hoping she wcould avoid any serious health issues and costs prior to being eligible for medicare. CM provided her with a patient assistance packet and encouraged her to complete and submit the document. Town of Residence: [place] Resides with: Spouse ( Jostin and daughter Radha) Significant Other/Family: Local Employment Status: Employed ([email or web address]) Instrumental Activities of Daily Living (ADLs): Independent Medications Medication Management: No Issues/Barriers identified Advance Directives Advance Directives: Do you have an Advance Directive: N 02/16/19 08:[address] [facility]: N 02/16/19 08:51 Date Asked 10/01/24 10/01/24 17:05 AD Date Reviewed COLST On File at [facility] COLST Date Scanned Code Status Resuscitation Status Full Code Insurance Coverage/Financial Issues Insurance: self pay Care Team Visit Care Team Role Provider Type Hailey Card NP Primary Care Provider NURSE PRACTITIONER Yane Davey RDN, [facility] Other Providers SHANK ARCHER Sabina Hansen Other Providers SHANK ARCHERREKHA Gong RDN Other Providers SHANK ARCHER Nadia Bell MD Emergency Provider [facility] STAFF PHYSICIAN Carlito Arreola MD Admit Provider [facility] STAFF PHYSICIAN Attending Provider Discharge Potential Discharge Needs: PCP F/U Appt and Other (possible neurology consult) Anticipated Barriers to Discharge: None Identified Patient/Family Education Needs: Review discharge instructions, discuss Ask Me Three Transportation: Private vehicle Plan: Anticipate Amy will be discharged home with no new services when medically cl eared. She will follow up with her PCP and plan of care and transport with family. CM will follow and continue to assess for discharge needs. Social Determinants of Health Screening Social Determinants of Health last assessed: 10/02/24 Will the Patient Participate in the Screening?: Yes Do you worry about having a steady place to live?: no Problems where you live: no known problems In the past 12 months, have you had to go without electric, gas, oil or water in your home?: no Have you or anyone in your house had to go without enough food to eat?: no Has lack of transportation kept you from medical appointments or from doing things needed for daily living?: no Has anyone in your life made you feel unsafe or unsupported?: no How hard is it for you to pay for the very basics like food, housing, medical care, and heating? Would you say it is:: Not hard at all Do you want help finding or keeping work or a job?: I do not need or want help If for any reason you need help with day-to-day activities such as bathing, preparing meals, shopping, managing finances, etc., do you get the help you need?: I don?t need any help How often do you feel lonely or isolated from those around you?: Never Do you speak a language other than Ukrainian at home?: No Does the patient want assistance with any of the above?: No PFSH All Active Problems (Updated 10/01/24 @ 22:57 by Carlito Arreola MD) Abnormal CT of brain (Acute) Left leg weakness (Acute) Atherosclerosis of [place] coronary artery (Acute 08/15/02) inferior ND; 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; 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 + MPI stress test neg-09/29 Diabetes mellitus (Acute 02/04/13) Essential hypertension (Acute 07/24/13) Hyperlipidemia (Acute 02/04/13) Hypothyroidism (Acute) Medical History (Updated 10/01/24 @ 22:57 by Carlito Arreola MD) Tubular adenoma (~04/2023) Tubulovillous adenoma (~07/2020) Depressive disorder Screen for colon cancer Arteritis (12/14/06) History of tobacco use Elev transaminase/LDH (10/16/07) elevated ferritin Surgical History History of colonoscopy with polypectomy (~04/2023) Attempted to do Colonoscopy, polup removed/ pt to be r/s with added prep History of bilateral ligation of fallopian tubes Stent placement -2002 STRESS TEST (09/24/13) DR. CLAROS Biopsy of breast right; ductal hyper-- Family History Mother , age 75 Diabetes Essential hypertension Depression Hyperlipidemia Breast cancer Sister No problems noted. Brother Diabetes Essential hypertension Maternal Grandfather Diabetes Essential hypertension Heart disease Paternal Grandfather No problems noted. Maternal Grandmother No problems noted. Paternal Grandmother No problems noted. Brother No problems noted. Brother No problems noted. 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 Pets and animals: Yes Pets and animals: dog(s) Sexually active: No Do you think of yourself as: straight/heterosexual Current gender identity: female What is your relationship status?: How often do you talk on the phone with friends or family?: never How often do you get together with friends or relatives?: decline to answer How often do you attend yazdanism or mandaeism services?: decline to answer Do you belong to any clubs or organized social groups?: no Panel score (0-1 are the most socially isolated patients): 1 What type of physical activity do you participate in: none Duration: 15-30 minutes/day Frequency: does not exercise Fifi/Lutheran: None Special fifi needs: No Seatbelt use: always Drive intox or ride w/intox tram driver: No Do you feel safe at home: Yes Do you feel safe in your relationship?: Yes
--- NOTE | 2024-10-02 09:40 | W.PM.PROGNOT ---
Date of Service Date of service: 10/02/24 Time of Service: 11:42 Assessment and Plan Assessment and plan (1) Abnormal CT of brain: Status: Acute Assessment and plan: The V rad reading points toward a lacunar infarct on the right but unable to determine time frame MRI is showing acute territorial infarct and white matter most consistent with chronic microvascular ischemic disease Continue aspirin 81 mg daily Plavix 75 mg STAT and daily ordered Teleneuro consult ordered to f/u completed with Dr. Mijares -No plavix load- Plavix 75 mg daily for 21 days then on ASA only - On High intensity statin already, could used zetia with LDL still > 70 but muscle pain reported in the past- improve blood sugar control could improve triglycerides -PT/OT -Patient at increase risk for stroke or [place] MRA/ MRI angio neck and brain: No dissection, aneurysm or occlusion/stenosis- normal [place] circulation Echo: No PFO, LVEF 55% A1C > 13.0 Lipids: Triglycerides 254, total cholesterol 217, LDL 126, HDl 41- Already on maxed high intensity statin - Adverse effect from zetia (2) Left leg weakness: Status: Acute Assessment and plan: No clear etiology at this point. Reporting multiple episode in past months.She may have landed awkwardly on that leg but what ever strain or sprain appears to have resolved. Resolving weakness Still not ruled out that there is a neurologic basis for this left leg weakness.Spinal studies to be done if MRI negative (3) Atherosclerosis of [place] coronary artery: Status: Acute Assessment and plan: PMHx [place] at age 42, stent x 1. On ASA and statin (4) Diabetes mellitus: Status: Acute Assessment and plan: Glouc Ac and HS with SSI coverage , A1C> 13 today Holding metformin X48 hours d/t contrast Consider basal insulin bolus but patient was reluctant to SSI coverage continue glipizide Consider GLP1 discussion as an outpatient Diabetic nutrition consult (5) Essential hypertension: Status: Acute Assessment and plan: home medicine regimen held in the setting of acute infarct for permissive HNT X 24- 48 hours (6) Hyperlipidemia: Status: Acute Assessment and plan: Continue high intensity statin (7) Hypothyroidism: Status: Acute Assessment and plan: Continue home dose of levothryroxine (8) Hypomagnesemia: Status: Inactive Assessment and plan: Magnesium 1.6 on admission.Now resolved s/p supplementation (9) On deep vein thrombosis (DVT) prophylaxis: Status: Acute Assessment and plan: Continue LMWH Discuss with Dr Rhoades Subjective Subjective Patient reports: no new complaints, tolerating liquids well, tolerating a regular diet and afebrile; denies voiding w/o difficulty, nausea, vomiting or shortness of breath Exam Narrative Exam Narrative: Constitutional The patient is sitting in chair, without acute distress with obese body habitus HENMT: Head is atraumatic, normocephalic, no lymphadenopathy. Facial structures with normal appearance Eyes: Well aligned, intact ROM Neck: Normal ROM, no meningeal signs Neuro:alert and oriented x 4, cranial nerve II-XII intact, improving LLE weakness, minimal drifting Chest:Chest is symmetrical and normal appearance Resp: Clear lung bilaterally Cardio:tele sinusal rhythm, HR 61- SD 0.25, S1, S2, no murmur, PPPP X 4 GI: Abdomen is not distended, soft and non tender, bowel sounds are present : Negative Costovertebral angle tenderness Back/spine/Pelvis: No back tenderness, normal alignment Extremities: strength 4/5 to LLE on resistance Psych: RASS 0, congruent mood and normal affect. Objective Last Vital Signs Temp 36.2 C L 10/02/24 08:20 Pulse 66 10/02/24 08:20 Resp 16 10/02/24 08:20 BP 135/66 10/02/24 08:20 Pulse Ox 95 10/02/24 08:20 Laboratory Results - last 24 hr 10/01/24 10/02/24 18:48 05:56 WBC 10.04 9.31 RBC 4.56 4.46 Hgb 13.9 13.6 Hct 41.7 40.6 MCV 91 91 MCH 30.5 30.5 MCHC 33.3 33.5 RDW 12.1 12.0 Plt Count 357 332 MPV 9.1 9.1 Immature Gran % 0.8 0.8 Neutrophils % 70.2 66.4 Lymphocytes % 22.0 23.8 Monocytes % 5.7 7.2 Eosinophils % 0.8 1.2 Basophils % 0.5 0.6 Nucleated RBC % 0.0 0.0 Absolute Neutrophils 7.05 H 6.18 Absolute Lymphocytes 2.21 2.22 Absolute Monocytes 0.57 0.67 Absolute Eosinophils 0.08 0.11 Absolute Basophils 0.05 0.06 Sodium 135 L 136 Potassium 4.1 4.2 Chloride 101 101 Carbon Dioxide 26.0 25.5 Anion Gap 8.0 9.5 BUN 23 H 19 H Creatinine 0.9 0.8 Est GFR (CKD-EPI 2020) 71.39 82.23 Glucose 358 H 367 H Calcium 9.2 8.4 L Magnesium 1.6 L 2.3 Total Bilirubin 0.41 AST 19 ALT 35 Alkaline Phosphatase 65 Creatine Kinase 94 Total Protein 7.4 Albumin 3.3 L Time Spent with Patient Time Spent with Patient: >50 minutes Time was spent: preparing to see the patient(eg.review tests), obtaining and/or reviewing separately otained hiistory, ordering medications,tests, procedures, referring, communicating with other health healthcare analyst, indepentently interpreting results, counseling the patient and care coordination
[2024-10-02 11:34] VITALS: BP 128/68; PULSE 66; RESP 16; TEMP 36.6; O2SAT 99
--- NOTE | 2024-10-02 11:57 | NUR.NOTE ---
Nursing Note: I asked the patient if she wanted the insulin, she said she doesn't take it at home. She takes her metformin and glipizide at home only.
[2024-10-02 12:35] LABS: Calculated LDL 126 mg/dL (<100); Cholesterol 217 mg/dL (<200); HDL Cholesterol 41 mg/dL (40-60); Triglyceride 254 mg/dL (<150)
--- NOTE | 2024-10-02 12:57 | CHAPLAIN ---
Amy was up in the chair, waiting to go to an MRI, when I visited. She's had MRIs before, she said. Her (?) was with her. I explained my role and offered support. Amy said she's fine. I was able to get her a cup of coffee. They live in [place].
[2024-10-02 13:01] LABS: Hemoglobin A1C > 13.0 % (<5.7)
--- NOTE | 2024-10-02 14:22 | W.NUTRFU ---
Date of service: 10/02/24 Time of Service: 14:22 Nutrition Note NOTE: received nutrition consult regarding diabetes mgt/education visited with Amy who states dx of diabetes for about 10 year now. A1C is 13% this admission. Has rx for glipizide and metformin at home. Amy with high diabetes distress lately and shares she hasn't been compliant with diet or meds in some time. I related that the stress of managing a chronic illness can take it's emotional toll, but she agreed when we discussed this is a wake-up call to start being more consistent and up the agressiveness of her glucose mgt. She did take my card for outpatient support if needed but related that she knows what needs to be done just needs to get back up and start working harder at managing her glucose more consistently like she had in the past. let her know I am available for help with diet and managing glucose targets. Time Spent in Nutritional Counseling and Treatment: 15 minutes
[2024-10-02 15:04] VITALS: BP 110/64; PULSE 69; RESP 20; TEMP 36.6; O2SAT 96
[2024-10-02] MEDS: Gadoterate meglumine 20 ML SYRINGE 17 ML IVP (15:49)
[2024-10-02] MEDS: Insulin Aspart 300 UNITS/3 ML PEN SC (16:49)
[2024-10-02 19:31] VITALS: BP 116/57; PULSE 74; RESP 20; TEMP 36.5; O2SAT 96
[2024-10-02] MEDS: Atorvastatin 40 MG TAB 80 MG PO (19:44)
[2024-10-02] MEDS: diphenhydrAMINE 25 MG CAP PO (19:44)
[2024-10-02] MEDS: Clopidogrel 75 MG TAB PO (19:56)
[2024-10-02 22:57] VITALS: BP 112/53; PULSE 71; RESP 14; TEMP 36.4; O2SAT 95
--- NOTE | 2024-10-02 23:31 | DI.MRI_ITS ---
Exam(s) MR BRAIN WO/W EXAM: MR BRAIN WO/W CLINICAL HISTORY: CVA, right lower extremity weakness TECHNIQUE: Multiplanar multisequence MRI of the brain was performed. CONTRAST MATERIAL: IV Contrast: 17 mL of Dotarem contrast administered. COMPARISON: CT CT HEAD WO from 10/01/2024 MR MR ANGIO BRAIN WO from 10/02/2024 FINDINGS: VENTRICLES AND EXTRA AXIAL SPACES: Normal in size and morphology for the patient's age. HEMORRHAGE: None. CEREBRAL PARENCHYMA: No focus of restricted diffusion to suggest acute infarct. No space-occupying le denise identified. There are several areas of hyperintense signal seen in the white matter on the FLAIR and T2 weighted images most consistent with chronic microvascular ischemic disease. MIDLINE SHIFT: None. BRAINSTEM/CEREBELLUM: Normal. CALVARIUM: Normal. ENHANCEMENT: No suspicious enhancement identified. VISUALIZED PARANASAL SINUSES/MASTOIDS: Clear. [place]: Normal flow void. PITUITARY GLAND: Unremarkable. OTHER FINDINGS: IMPRESSION: 1. Evidence of an acute territorial infarct. 2. Areas of hyperintense signal seen in the white matter most consistent with chronic microvascular i schemic disease. DATA REPOSITORY:
[2024-10-03] MEDS: Levothyroxine 150 MCG TAB PO (05:46)
[2024-10-03] MEDS: Aspirin 81 MG CHEW CH (08:47)
[2024-10-03] MEDS: Clopidogrel 75 MG TAB PO (08:47)
[2024-10-03] MEDS: FLUoxetine 20 MG CAP PO (08:47)
[2024-10-03] MEDS: glipiZIDE 10 MG TAB PO (08:47)
[2024-10-03] MEDS: Insulin Aspart 300 UNITS/3 ML PEN SC ×2 (08:47→12:37)
[2024-10-03] MEDS: Normal Saline Flush 10 ML SYR IVP (08:48)
[2024-10-03 10:11] VITALS: BP 158/71; PULSE 74; RESP 16; TEMP 36.7; O2SAT 97
--- NOTE | 2024-10-03 10:31 | PT.INIE ---
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 She reports that it took her 10 minutes to get up difficulty moving her left leg. She felt like her left leg felt heavy. She did go to the ED CAT scan question of an infarct. She does report that her left leg weakness is gradually improving although she can note some heaviness or some difference compared to her other leg. 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 + MPI stress test neg-09/29 Diabetes mellitus (Acute 02/04/13) Essential hypertension (Acute 07/24/13) Hyperlipidemia (Acute 02/04/13) Hypothyroidism (Acute) Medical History (Updated 10/01/24 @ 22:57 by Carlito Arreola MD) Tubular adenoma (~04/2023) Tubulovillous adenoma (~07/2020) Depressive disorder Screen for colon cancer Arteritis (12/14/06) History of tobacco use Elev transaminase/LDH (10/16/07) elevated ferritin Surgical History History of colonoscopy with polypectomy (~04/2023) Attempted to do Colonoscopy, polup removed/ pt to be r/s with added prepHistory of bilateral ligation of fallopian tubes Stent placement rca-2002STRESS TEST (09/24/13) DR. CLAROSBiopsy of breast right; ductal hyper-- Social History/Home Situation: Lives with , single floor living. 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 Current Functional Limitations: At baseline patient does not use any AD. She reports no history of falls prior to [place] time but does note that her left leg has given out on her a couple of times after . Equipment Owned/DME: None Subjective: I feel little unsteady but in general feel better than I was feeling before that left leg just does not feel quite normal yet Objective: General Observation: Patient is sitting up in bed engaged and willing to participate in physical therapy evaluation Mental Status: A and O x 4 Pain: Patient does not report any acute pain Vital Signs: O2 97 BP 158/71 HR71 ROM: Right Upper Extremity: Full WNL Left Upper Extremity: Full WNL Right Lower Extremity: Full WNL Left Lower Extremity: Full WNL Strength: Right Upper Extremity: 5/5 Left Upper Extremity: 5/5, equal assistant 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 Gait: Patient slow and unsteady with ambulation with short stride lengths and cautious. Patient reports that she feels that she does not have confidence in the left LE. Patient ambulates with SBA. Balance: Static Sitting: Normal Dynamic Sitting: Normal Static Standing: Normal SLS right 8 seconds left 5 Dynamic Standing: Good patient does not have confidence with left SLS and with reaching but is generally safe and being more cautious Special Tests: Mobility Limitations Standardized Measure [facility] AM-PAC 6 clicks Basic Mobility Inpatient Short Form: Raw Score: 24 standardized Score: 6.94 CMS Score: 0 Informed Consent/Education: Patient instructed in purpose of PT consult and plan of care. Treatment: Therapeutic Activities - (11158 x[1]): instruction in dynamic activities with one on one patient contact by the provider to improve functional performance?as follows: ? [] Ambulation with supervision short stride length and slow pace 200', stairs up and down 4 and 6 x1, repeat 6 up with v/c to not pull x10 with left only, sit to stand from folding chair w/o UE x5, calf raises x5, single leg calf raise left x5, single leg balance activity 3x10 sec on left. Assessment: Patient is a 64year old female referred to physical therapy services with the diagnosis of CVA/left leg weakness. Patient presents with clinical signs and symptoms consistent with CVA/left leg weakness, as demonstrated by the following impairment level findings: Mild weaknesses on left LE and cautious gait pattern, decreased balance on left LE . Impairments are contributing to the following functional limitations: AMPAC score. Patient is assessed as a Low 47756 complexity based on the following: History: As above Examination: As above Presentation: Stable and improving Decision Making: Low Goals: Goals X1 week 1. Supine-Sit independent 2. Sit-Supine independent 3. Sit-Stand independent 4. Stand-Sit independent 5. Bed-Chair independent 6. Chair-Bed independent 7. Gait ambulate independent with normal stride length x 500 feet 8. Stairs independent with single rail 9. Independent with home exercise program 10. Balance normal Plan of Care/Treatment Plan: Will plan to keep on service to maximaize strength, endurance, dynamic balance, gait speed to aide in RTPLOF. 1-2x/day, 7 days/week x 1 week. Plan of care has been reviewed with the RIPSAW OPERATOR providing the service under Physical Therapy direction. Initiate Physical Therapy intervention for strengthening, bed mobility, transfers, gait, stairs, balance training, use of assistive device. DISCHARGE RECOMMENDATIONS: x Home with no services TREATMENT CODE/TIME: [id number] 10' 10:05-10:30 25' total
[2024-10-03] MEDS: Enoxaparin 40 MG/0.4 ML SYR SC (10:33)
[2024-10-03 11:59] VITALS: BP 129/61; PULSE 73; RESP 18; TEMP 36.6; O2SAT 97
--- NOTE | 2024-10-03 12:00 | W.PM.DS.N ---
Date of service: 10/03/24 Time of Service: 12:00 DS: Diagnosis Discharge Diagnosis (1) CVA (cerebral vascular accident): Status: Chronic Asessment and Plan: teleneuro consult with recommendations for DAPT for 21 days, then asa 81 mg daily (2) Left leg weakness: Status: Acute (3) Atherosclerosis of [place] coronary artery: Status: Acute (4) Diabetes mellitus: Status: Acute (5) Essential hypertension: Status: Acute (6) Hyperlipidemia: Status: Acute (7) Hypothyroidism: Status: Acute (8) Hypomagnesemia: Status: Inactive Discharge Plan Disposition Patient Disposition: Home Condition: Stable Discharge Details Reason For Visit: CVA/left leg paresthesia Admit Date/Time: 10/01/24 21:50 Admit Provider: Carlito Arreola Attending Provider: Carlito Arreola Primary Care Provider: [facility] Course Hospital Course: This is a 64-year-old female patient past medical history significant for diabetes mellitus poorly controlled, dyslipidemia, hypothyroidism, hypertension, medical care deficit/noncompliance from lack of insurance/financial constraints who presented to the emergency department for evaluation after falling from left-sided weakness. Her workup was concerning for an acute CVA. She did undergo a stroke workup and a telemetry neuroconsultation and was diagnosed with an acute cerebral infarct. She underwent MRI echocardiogram which were all reviewed by telemetry neurologist. Recommendations are to continue dual antiplatelet therapy and after 21 days aspirin 81 mg daily only. A1c found to be 13 her goal should be less than 7. She is to continue her metformin and glipizide and should discuss the addition of further medications or therapies to reduce her A1c. Also LDL goal greater than 70 which hers is 126. Recommendations are to add additional LDL lowering medications in addition to her high dose statin. She is being discharged to home with outpatient follow-up with her primary care provider and neurology. A prescription has been sent for clopidogrel for 20 more days. Case management did confirm the prescription would be $16 which patient will be able to obtain. She was advised to return sooner for new or worsening symptoms and follow-up outpatient as advised. Discharge discussed with Dr. Rhoades Home Meds and New Rx's Prescriptions: New clopidogrel 75 mg Tablet 75 mg PO DAILY Qty: 20 0RF Continued cholecalciferol (vitamin D3) 50 mcg (2,000 unit) capsule 50 mcg PO DAILY B-complex with vitamin C Capsule 1 cap PO DAILY ASPIRIN 81 MG tablet 1 tab PO DAILY nitroglycerin 0.4 MG tablet, sublingual 1 tab Sublingual PRN Qty: 25 diphenhydramine HCl 25 MG tablet 25 mg PO HS lisinopril 10 mg tablet 10 mg PO DAILY Qty: 90 3RF atenolol 25 mg tablet 25 mg PO DAILY Qty: 90 4RF levothyroxine 150 mcg tablet 150 mcg PO .COMPLEX Qty: 48 3RF Rx Instructions: 4 days per week Saturday, Saturday, and Saturday 150 mcg PO ; levothyroxine 137 mcg tablet 137 mcg PO .COMPLEX Qty: 48 3RF Rx Instructions: saturday, saturday, saturday 137 mcg PO ; fluoxetine 20 mg capsule 20 mg PO DAILY Qty: 90 4RF glipizide 10 mg tablet 10 mg PO BID Qty: 180 4RF atorvastatin 80 mg tablet 80 mg PO QPM Qty: 90 4RF metformin 500 mg tablet extended release 24 hr 1,000 mg PO BID Qty: 180 3RF Discharge Instructions Instructions: Stroke Additional Instructions: discuss adding another medication to your statin to help lower your cholesterol for goal of LDL less than 70, yours is 126. also discuss additional meds and diabetic education regarding your blood sugar management. A1C goal is less than 7, your A1C is greater than 13. resume the rest of your medications as previously directed. Stand Alone Forms: Nursing Discharge Form Referrals: Hailey Card NP [Primary Care Provider] - (Please call your PCP office on Saturday to make a follow up appointment for within 1 to 2 weeks.) Activity:: Activity as Tolerated Equipment/Supplies:: No Equipment Needed Diet:: Carb Counting Discharge Orders Discharge Orders: Discharge Order (Routine); Ordered 10/03/24 Ordered By: Ayaka Peralta Discharge Data Discharge Date/Time-TO BE ENTERED AT DEPARTURE: 10/03/24 13:14 DS: Summary Time Spent with Patient providing and/or coordinating discharge services: Greater than 30 minutes Status at Discharge Functional status at discharge: independent ambulation Overall status at discharge: patient is back to baseline Mental Status: mental status grossly normal Speech and Movement: speech and movement normal Mood: congruent mood Affect: normal affect Quality:SDOH Health Related Social Needs: No Data to Display Exam Narrative Exam Narrative: Obese female of older appearing than stated age no acute distress head is atraumatic eyes nonicteric noninjected oral mucosas moist neck full range of motion cardiovascular regular rate and rhythm no murmurs appreciated respirations even and unlabored abdomen is round nontender moves all extremities equally neurologic awake alert oriented no facial droop Psych Mental Status: mental status grossly normal Speech and Movement: speech and movement normal Mood: congruent mood Affect: normal affect DS: Data Vitals/I&O Vitals and I&O: Vital Signs Temperature 36.7 C 10/03/24 10:11 Temperature Source Temporal Artery Scan 10/03/24 10:11 Pulse 74 10/03/24 10:11 Pulse Rhythm Regular 10/01/24 23:32 Pulse 77 10/01/24 22:50 Respiratory Rate 16 10/03/24 10:11 Respiratory Effort Normal 10/01/24 23:32 Respiratory Depth Normal 10/01/24 23:32 Respiratory Pattern Normal 10/01/24 23:32 Blood Pressure 158/71 H 10/03/24 10:11 Blood Pressure Mean 92 10/01/24 22:46 Blood Pressure Position Sitting 10/01/24 16:58 Pulse Oximetry 97 10/03/24 10:11 Oxygen Delivery Method Room Air 10/03/24 10:11 Oxygen Flow Rate 0 10/03/24 10:11 Pain Level 0 10/03/24 10:11 Comment RN Notified 10/02/24 19:31 Data Completed and Pending Labs on day of discharge: Labs from last 24 hours 10/02/24 10/02/24 12:10 11:51 Hemoglobin A1c > 13.0 H Cancelled Triglycerides 254 H Total Cholesterol 217 H LDL Cholesterol, Calc 126 H HDL Cholesterol 41 PFSH All Active Problems (Updated 10/03/24 @ 12:01 by Ayaka Peralta NP) CVA (cerebral vascular accident) (Chronic) On deep vein thrombosis (DVT) prophylaxis (Acute) Abnormal CT of brain (Acute) Left leg weakness (Acute) Atherosclerosis of [place] coronary artery (Acute 08/15/02) inferior [place]; 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; 02/22 + MPI stress test neg-09/29 Diabetes mellitus (Acute 02/04/13) Essential hypertension (Acute 07/24/13) Hyperlipidemia (Acute 02/04/13) Hypothyroidism (Acute) Medical History (Updated 10/03/24 @ 12:01 by Ayaka Pearlta NP) Tubular adenoma (~04/2023) Tubulovillous adenoma (~07/2020) Depressive disorder Screen for colon cancer Arteritis (12/14/06) History of tobacco use Elev transaminase/LDH (10/16/07) elevated ferritin Surgical History History of colonoscopy with polypectomy (~04/2023) Attempted to do Colonoscopy, polup removed/ pt to be r/s with added prep History of bilateral ligation of fallopian tubes Stent placement -2002 STRESS TEST (09/24/13) DR. CLAROS Biopsy of breast right; ductal hyper-- Family History Mother , age 75 Diabetes Essential hypertension Depression Hyperlipidemia Breast cancer Sister No problems noted. Brother Diabetes Essential hypertension Maternal Grandfather Diabetes Essential hypertension Heart disease Paternal Grandfather No problems noted. Maternal Grandmother No problems noted. Paternal Grandmother No problems noted. Brother No problems noted. Brother No problems noted. 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 Pets and animals: Yes Pets and animals: dog(s) Sexually active: No Do you think of yourself as: straight/heterosexual Current gender identity: female What is your relationship status?: How often do you talk on the phone with friends or family?: never How often do you get together with friends or relatives?: decline to answer How often do you attend nondenominational or shinto services?: decline to answer Do you belong to any clubs or organized social groups?: no Panel score (0-1 are the most socially isolated patients): 1 What type of physical activity do you participate in: none Duration: 15-30 minutes/day Frequency: does not exercise Fifi/Hindu: None Special fifi needs: No Seatbelt use: always Drive 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
--- NOTE | 2024-10-03 13:02 | PDOC.CMDIS ---
Date of service: 10/03/24 Time of Service: 13:02 LACE Index Scoring Tool Questions: Length of Stay (in days): 2 Was the patient admitted via the E.D.?: Yes Comorbidities: Diabetes w/o Complication E.D. Visits: 1 Answers: Total Score: 7 Risk of Readmission: Low Risk Care Management Discharge Plan Reason for Hospitalization: fall, CVA with left sided weakness Discharge Plan: Amy is discharged home today with no new services. She will be on Plavix for 20days. The cost was confirmed by CM, and is affordable to the patient. Amy will f/u with her PCP and continue per her plan of care. 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 Amy will transport home with her . SDOH Health Related Social Needs: No Data to Display
== END 2024-10-03 13:14 | disposition home or self-care (01) ==
LOC: ER 21:30 → MS 23:10
PROVIDERS: Nurse Practitioner Acute Care; Admitting Provider Family Medicine; Emergency Provider Emergency Medicine; PCP Nurse Practitioner Family; Visit Provider Family Medicine
DX: I63.9 Cerebral infarction, unspecified (principal); G81.94 Hemiplegia, unspecified affecting left nondominant side; I25.2 Old myocardial infarction; Z95.5 Presence of coronary angioplasty implant and graft; I25.10 Atherosclerotic heart disease of native coronary artery without angina pectoris; I10 Essential (primary) hypertension; E78.5 Hyperlipidemia, unspecified; E03.9 Hypothyroidism, unspecified; E83.42 Hypomagnesemia; W00.0XXA Fall on same level due to ice and snow, initial encounter; F32.A Depression, unspecified; Z87.891 Personal history of nicotine dependence; Z79.84 Long term (current) use of oral hypoglycemic drugs; I67.89 Other cerebrovascular disease; E11.65 Type 2 diabetes mellitus with hyperglycemia; Z91.190 Patient's noncompliance with other medical treatment and regimen due to financial hardship
CPT/HCPCS: 00123; 36415; 70544; 70547; 70553; 80048; 80053; 80061; 82550; 93005; 96365; 96366; 96372; 97161; 97530; 99285; J1650; 70450; 83036; 83735; 85025; 93010; 93306; 99222; 99233; 99239; G0378; J1815; J3475

== ENCOUNTER 2025-01-01 00:47 | Outpatient (CLI) | payer SELFPAY ==
[2025-01-01 08:05] LABS: Hemoglobin A1C 7.8 % (<5.7)
[2025-01-01 08:32] LABS: TSH (W/Ref FT4) 0.03 uIU/mL (0.36-3.74)
[2025-01-01 08:50] LABS: FREE T4 1.15 ng/dL (0.76-1.46)
[2025-01-01 09:03] LABS: Calculated LDL 73 mg/dL (<100); Cholesterol 130 mg/dL (<200); HDL Cholesterol 36 mg/dL (>or=50); Triglyceride 109 mg/dL (<150)
== END 2025-01-01 00:48 | disposition home or self-care (01) ==
LOC: LBO 00:47
PROVIDERS: PCP Nurse Practitioner Family; Visit Provider Nurse Practitioner Family
DX: E11.9 Type 2 diabetes mellitus without complications (principal); E78.2 Mixed hyperlipidemia; E03.9 Hypothyroidism, unspecified
CPT/HCPCS: 36415; 80061; 83036; 84439; 84443

== ENCOUNTER 2025-02-26 13:04 | Outpatient (CLI) | payer SELFPAY | END 2025-02-26 13:05 | disposition home or self-care (01) | PROVIDERS: PCP Nurse Practitioner Family; Referring Provider Psychiatry & Neurology Neurology; Visit Provider Psychiatry & Neurology Neurology | DX: I63.9 Cerebral infarction, unspecified (principal) | CPT/HCPCS: 93246 ==

== ENCOUNTER 2025-03-23 08:03 | Outpatient (CLI) | payer SELFPAY ==
--- NOTE | 2025-03-23 09:27 | W.CARDEVENT ---
Date of service: 03/23/25 Time of Service: 09:28 Cardiac Event Recorder Referring Provider:: Ara Henry Indications:: Transient cerebral ischemia Cardiac Event Note: This is a cardiac event monitor. Patient was monitored for 13 days and 11 hours Rhythm throughout was sinus with an average heart rate of 64. Minimum was 47, maximum 140 A total of 5 isolated ventricular ectopic beats were recorded There were rare atrial premature beats. There were 4 self-limited atrial runs There was no atrial fibrillation, no high-grade AV block, no pauses greater than 3 seconds Reported symptoms correlated to an atrial premature beat
== END 2025-03-23 08:04 | disposition home or self-care (01) ==
LOC: CARDOPNVT 08:03
PROVIDERS: PCP Nurse Practitioner Family; Visit Provider Internal Medicine Cardiovascular Disease
DX: G45.9 Transient cerebral ischemic attack, unspecified (principal); I49.3 Ventricular premature depolarization; I49.1 Atrial premature depolarization
CPT/HCPCS: 93248

== ENCOUNTER 2025-04-22 14:42 | Outpatient (REF) | payer MEDICARE, SELFPAY ==
--- NOTE | 2025-04-22 13:15 | PAPFT_PTH ---
PATIENT: Amy Boyd LOC: [facility] U#:[id number] AGE/SX: 65/F ROOM: RE04/22/[address]: TERRY Del Valle : 1960 BED: DIS: 04/22/2025 SPEC #: [id number] RECD: 04/23/25 12:58 STATUS: MARIEL REFredy #: [id number] MEGA: 04/22/25 13:[address]: Nithya Ponce [facility] Cytology RECD BY: Alicia Bentley Tissues: 1 - CX/ENDOCX FOR PAP SMEARS Procedures: PAP THIN PREP/UVM Screening HPV DNA PROBE Comments: [id number] (HPV 16 & 18/45)
== END 2025-04-22 14:43 | disposition home or self-care (01) ==
LOC: LBN 14:42
PROVIDERS: PCP Nurse Practitioner Family; Visit Provider Nurse Practitioner Family
DX: Z12.4 Encounter for screening for malignant neoplasm of cervix (principal)
CPT/HCPCS: 88142; 87624

== ENCOUNTER 2025-04-29 03:46 | Outpatient (CLI) | payer MEDICARE, SELFPAY ==
[2025-04-29 11:23] LABS: ALT 29 U/L (14-59); AST 16 U/L (15-37); Albumin 3.7 g/dL (3.4-5.0); Alkaline Phosphatase 59 U/L (46-116); Anion Gap 11.3 mmol/L (3-11); BUN 31 mg/dL (7-18); Bilirubin, Total 0.4 mg/dL (0.2-1.0); CO2 23.7 mmol/L (21.0-32.0); Calcium 9.3 mg/dL (8.5-10.1); Chloride 102 mmol/L (98-107); Estimated GFR 81.72 (mL/min/1.73m2); Glucose 241 mg/dL (74-106); Potassium 5.1 mmol/L (3.5-5.1); Sodium 137 mmol/L (136-145); TSH (W/Ref FT4) 0.03 uIU/mL (0.36-3.74); Total Protein 8.0 g/dL (6.4-8.2)
[2025-04-29 17:02] LABS: COMMENT (LAB VIEW ONLY) 41.95 mg/dL; Microalb ug/mg Crea 44.6 ug/mg Cr
[2025-04-29 22:56] LABS: HIV-1/2 Ag & Ab Screen Negative (Negative)
[2025-04-29 23:00] LABS: Hepatitis C Ab w Rflx HCV PCR Negative (Negative)
[2025-04-29 23:28] LABS: HBs Antibody, Quant <3.1 mIU/mL (See Note); Hepatitis B Surface Antigen Negative (Negative)
== END 2025-04-29 03:47 | disposition home or self-care (01) ==
PROVIDERS: PCP Nurse Practitioner Family; Visit Provider Nurse Practitioner Family
DX: Z11.59 Encounter for screening for other viral diseases (principal); Z11.4 Encounter for screening for human immunodeficiency virus [HIV]; E03.9 Hypothyroidism, unspecified; E11.9 Type 2 diabetes mellitus without complications; Z00.00 Encounter for general adult medical examination without abnormal findings; I25.10 Atherosclerotic heart disease of native coronary artery without angina pectoris
CPT/HCPCS: 36415; 80053; 86704; 86706; 86803; 87340; 87389; 82043; 82570; 84439; 84443

== ENCOUNTER 2025-05-28 03:47 | Outpatient (CLI) | payer MEDICARE, SELFPAY ==
--- NOTE | 2025-05-28 06:15 | DI.MAMMO_ITS ---
Exam(s) MAMMO SCREENING EXAM: MAMMO SCREENING CLINICAL HISTORY: screening,z12.39. TECHNIQUE: Bilateral full field digital CC and MLO mammographic images were obtained with 3D tomosynthesis and utilizing computer aided detection (CAD). COMPARISON: Prior mammograms were reviewed. FINDINGS: There has been no significant change in the appearance and distribution of the fibroglandular tissue. No new findings in the immediate vicinity of a biopsy marker clip in the right breast. There are benign-appearing calcifications in both breasts. There are no new spiculated masses nor malignant appearing microcalcification groups. There is no significant architectural distortion nor skin thickening-retraction. IMPRESSION: No radiographic evidence of malignancy. BI-RADS Category 1 - Negative Breast Density - Category B - There are scattered areas of fibroglandular density. Breast density Category C or D implies that the patient has dense breast tissue. Dense breast tissue can make it harder to find cancer on a mammogram. Dense breast tissue is also associated with an increased risk of breast cancer. This information about the result of the mammogram report was provided to the patient to raise their awareness. Use this report when you speak with the patient about their risks for breast cancer, which includes their family history. At that time, you may recommend additional screening tests (Ultrasound or MRI) as these tests may add significant information. A negative radiographic report should not delay biopsy if a dominant or clinically suspicious mass is present. Up to ten percent of cancers are not identified on mammography. A negative report may reinforce clinical impression. Adenosis and dense breasts may obscure an underlying neoplasm. False positive reports average 6 to 10%. Patient will receive a letter notifying them of these results.
--- NOTE | 2025-05-28 06:15 | DI.DEXA_ITS ---
Exam(s) XR DEXA BONE DENSITY W/WO GUZMAN EXAM: XR DEXA BONE DENSITY W/WO GUZMAN CLINICAL HISTORY: osteoporosis screening postmenopausal status,z78.0 TECHNIQUE: Routine DEXA evaluation of the lumbar spine, hip, or forearm. COMPARISON: No exams were available for comparison FINDINGS: Performed on a Hologic unit. Lateral image: No compression fracture evident. Lumbar Spine total T-score: 0.9 which is within normal limits. Hip total T-score:-0.1 which is within normal limits. Independent reading at the level of the femoral neck yields T-score of 0.1 which is within normal limits. Forearm total T-score: 0.3 which is within normal limits. IMPRESSION: Bone mineral density measures in the normal range. Fracture risk is low. Note: Any spine fracture indicates 5x risk for subsequent spine fracture and 2x risk for subsequent hip fracture. World Health Organization criteria for BMD interpretation classify patients: Normal...... T- Score at or above -1.0 Osteopenic... T- Score between -1.0 and -2.5 Osteoporosis... T-Score at or below -2.5
== END 2025-05-28 04:07 ==
LOC: DI 03:47
PROVIDERS: PCP Nurse Practitioner Family; Visit Provider Nurse Practitioner Family
DX: Z12.31 Encounter for screening mammogram for malignant neoplasm of breast (principal); Z78.0 Asymptomatic menopausal state
CPT/HCPCS: 77063; 77067; 77080

== ENCOUNTER 2025-08-10 01:43 | Outpatient (CLI) | payer MEDICARE, SELFPAY ==
[2025-08-10 10:47] LABS: TSH (W/Ref FT4) 0.31 uIU/mL (0.55-4.78)
== END 2025-08-10 01:44 | disposition home or self-care (01) ==
LOC: LBO 01:43
PROVIDERS: PCP Nurse Practitioner Family; Visit Provider Nurse Practitioner Family
DX: E11.9 Type 2 diabetes mellitus without complications (principal); E03.9 Hypothyroidism, unspecified
CPT/HCPCS: 36415; 84439; 84443